=== PATIENT | female | born 1985 | race Caucasian/White ===

== ENCOUNTER 2019-04-21 17:30 | Emergency (ER) | payer OTHER, SELFPAY ==
--- NOTE | ~2019-04-21 | CT_ITS ---
EXAMINATION: CT abdomen pelvis w con INDICATION: Right lower quadrant abdominal pain TECHNIQUE: Computed tomographic images of the abdomen and pelvis were obtained after the administrati on of 100 cc of Omnipaque 350 intravenous contrast. The dose-length product (DLP) was 581.05 mGy-cm. Automated exposure control and iterative reconstruction technique were employed. COMPARISON: None available FINDINGS: Minimal dependent atelectasis is present in the lung bases. The heart size is normal. The l iver, spleen, pancreas, gallbladder, and adrenal glands are normal. There is a [address] one of the left kidney lower pole. There is no hydronephrosis or hydroureter. There is questionable m ild urothelial enhancement of the right ureter. No pathologically enlarged abdominal or pelvic lymph nodes are identified. There is no free intraperitoneal gas or evidence of bowel obstruction. The appe ndix is normal. IMPRESSION: 1. Possible mild urothelial enhancement of the right ureter which could reflect urinary tract infecti on. 2. Normal appendix. Reviewed, dictated and finalized at location A. [employer] IMPRESSION: 1. Possible mild urothelial enhancement of the right ureter which could reflect urinary tract infection. 2. Normal appendix.
[2019-04-21 18:52] VITALS: BP 135/87; PULSE 90; RESP 18; TEMP 37.1; O2SAT 100
[2019-04-21 19:04] LABS: Basophils Absolute Auto 0.1 K/mm3 (0.0-0.1); Basophils Percent Auto 0.3 % (0.2-1.2); Eosinophils Absolute Auto 0.1 K/mm3 (0-0.3); Eosinophils Percent Auto 0.9 % (0-4.4); Hematocrit 38.6 % (37.0-47.0); Hemoglobin 12.7 g/dL (12.0-15.0); Immature Granulocyte Absolute 0.06 K/mm3 (0.00-0.031); Immature Granulocyte Percent A 0.4 % (0-0.5); Lymphocytes Absolute Auto 3.03 K/mm3 (0.9-3.2); Lymphocytes Percent Auto 20.4 % (18.3-44.2); Mean Corpuscular HGB Conc 32.9 g/dl (32-36); Mean Corpuscular Hemoglobin 33.4 pg (26-34); Mean Corpuscular Volume 101.6 fl (80-100); Mean Platelet Volume 9.8 fl (7.4-10.4); Monocytes Absolute Auto 0.7 K/mm3 (0.1-0.6); Monocytes Percent Auto 4.8 % (2.6-8.5); Neutrophils Absolute Auto 10.9 K/mm3 (1.3-6.7); Neutrophils Percent Auto 73.2 % (45.5-73.1); Platelet Count Result 278 k/mm3 (150-375); Red Cell Distribution Width 13.1 % (11.5-14.5); White Blood Count 14.9 K/mm3 (4.5-10.0)
[2019-04-21 19:10] LABS: Add Urine Microscopic? YES; Appearance Urine Cloudy (Clear); Bacteria Urine 1+ /hpf; Bilirubin Urine Negative (Negative); Blood Urine 1+ (Negative); Color Urine Amber (Yellow); Glucose Urine UA Negative (Negative); Ketones Urine Trace mg/dL (Negative); Leukocyte Esterase Ur 1+ LEU/UL (Negative); Mucus Urine Heavy /lpf; Nitrate Urine Positive (Negative); Protein Urine 1+ mg/dL (Negative); Specific Grav Ur 1.026 (1.001-1.035); Squamous Epithelial Cell Urine Many /hpf (Few); Urobilinogen Urine Negative mg/dL (<2.0)
[2019-04-21 19:16] LABS: Alanine Aminotransferase 45 U/L (4-35); Albumin Level 4.3 g/dL (3.5-5.1); Alkaline Phosphatase 110 U/L (38-126); Aspartate Amino Transferase 26 U/L (14-36); Bilirubin,Total 0.8 mg/dL (0.2-1.3); Blood Urea Nitrogen 10 mg/dL (7-17); Calcium 9.5 mg/dL (8.4-10.2); Carbon Dioxide 25 mmol/L (22-30); Chloride 98 mmol/L (98-107); Estimated CRCL calculation 94 ml/min; Estimated Glomerular Filt Rate > 60; Glucose 102 mg/dL (65-105); Lipase 217 U/L (23-300); Potassium 4.2 mmol/L (3.4-5.0); Sodium 136 mmol/L (137-145)
--- NOTE | 2019-04-21 20:16 | ED.ABDPAIN ---
HPI - Abdominal Pain General Chief Complaint: Abdominal Pain Stated Complaint: abd pain Time Seen by Provider: 04/21/19 20:05 Source: patient Mode of arrival: ambulatory Limitations: no limitations History of Present Illness HPI narrative: The pt is a 34 y/o female who presents to the ED c/o diffuse stinging ABD pain onset one day ago. Pt states that the pain has worsened progressively and is worse in the RLQ. Pt denies N/V, dysuria, vaginal bleeding, and vaginal discharge. MD elicited complaint: abdominal pain Onset (ago): day(s) (1) Pain Consistency: constant (Progressively worsening) Location: diffuse (Worse in RLQ) Quality: other (Stinging) Associated symptoms: denies other symptoms Related Data Allergies Allergy/AdvReac Type Severity Reaction Status Date / Time vancomycin Allergy Unknown Itching Verified 11/10/18 03:37 Review of Systems Review of Systems: All systems reviewed & are unremarkable except as noted in HPI and below Gastrointestinal: Gastrointestinal: Reports abdominal pain (Diffuse, stinging, worse in RLQ), Denies nausea and Denies vomiting Genitourinary: Genitourinary: Denies abnormal vaginal bleeding, Denies dysuria and Denies vaginal discharge PMFSH Past Medical History Medical History (Updated 04/21/19 @ 22:04 by Daryl Carreon MD) Foot infection Gestational diabetes Inguinal hernia Surgical History Surgical History (Updated 04/21/19 @ 20:19 by Román Terrazas) H/O inguinal hernia repair H/O oral surgery Social History Social History (Updated 04/21/19 @ 20:20 by Román Terrazas) Smoking status: Smoker, status unknown Exam Narrative: Exam Narrative: GENERAL: Well-appearing, well-nourished, and in no acute distress. HEAD: Normocephalic, atraumatic. EYES: PERRLA and EOMI. ENT: Nares clear, no rhinorrhea or epistaxis. Mucous membranes moist. NECK: Supple. CHEST: Clear to auscultation. No respiratory distress. HEART: Regular rate and rhythm. No murmur heard. Normal peripheral pulses. ABDOMEN: Soft, tender in the lower abdomen more so on the right lower quadrant area., normal active bowel sounds. EXTREMITIES: Normal range of motion. No edema. SKIN: Warm, dry, no rash. NEURO: No focal deficits. Alert and oriented x3. PSYCH: Normal mood and affect. Course Course Emergency Course: Inform patient about her lab work, CT findings. Her lower abdominal pain more consistent with urinary tract infection. Advised her to drink plenty of fluids, take antibiotic as prescribed. And follow-up with the primary doctor in the next few days. Vital Signs Vital signs: Vital Signs Temperature 37.1 C 04/21/19 18:52 Pulse Rate 90 04/21/19 18:52 Respiratory Rate 18 04/21/19 18:52 Blood Pressure 135/87 04/21/19 18:52 Pulse Oximetry 100 04/21/19 18:52 Temperature 37.1 C 04/21/19 18:52 Pulse Rate 90 04/21/19 18:52 Respiratory Rate 18 04/21/19 18:52 Blood Pressure 135/87 04/21/19 18:52 Pulse Oximetry 100 04/21/19 18:52 MDM - Abdominal Pain Lab Data Result diagrams: 04/21/19 18:56 04/21/19 18:56 Labs: Lab Results 04/21/19 04/21/19 04/21/19 Range/Units 18:56 18:56 18:56 WBC 14.9 H (4.5-10.0) K/mm3 RBC 3.80 L (4.2-5.4) M/mm3 Hgb 12.7 (12.0-15.0) g/dL Hct 38.6 (37.0-47.0) % MCV 101.6 H (80-100) fl MCH 33.4 (26-34) pg MCHC 32.9 (32-36) g/dl RDW 13.1 (11.5-14.5) % Plt Count 278 (150-375) k/mm3 MPV 9.8 (7.4-10.4) fl Immature Gran % (Auto) 0.4 (0-0.5) % Neut % (Auto) 73.2 H (45.5-73.1) % Lymph % (Auto) 20.4 (18.3-44.2) % Early % (Auto) 4.8 (2.6-8.5) % Eos % (Auto) 0.9 (0-4.4) % Baso % (Auto) 0.3 (0.2-1.2) % Lymph # (Auto) 3.03 (0.9-3.2) K/mm3 Early # (Auto) 0.7 H (0.1-0.6) K/mm3 Eos # (Auto) 0.1 (0-0.3) K/mm3 Baso # (Auto) 0.1 (0.0-0.1) K/mm3 Abs Immat Gran (auto) 0.06 H (0.00-0.031) K/mm3 Absolute Neuts (auto) 10.9 H
[2019-04-21 22:06] VITALS: BP 142/78; PULSE 88; RESP 16; O2SAT 98
[2019-04-21] MEDS: KETOROLAC 30 MG/ML VIAL (*BKC) IV PUSH (22:06)
== END 2019-04-21 22:47 | disposition home or self-care (01) ==
PROVIDERS: Emergency Provider Family Medicine
DX: N39.0 Urinary tract infection, site not specified (principal)
CPT/HCPCS: 36415; 74177; 80053; 81001; 81025; 83690; 85025; 87077; 87086; 87088; 87186; 96365; 96375; 99284; J0696; J1885; Q9967

== ENCOUNTER 2021-02-16 19:07 | Emergency (ER) | payer OTHER, SELFPAY ==
[2021-02-16 19:16] VITALS: BP 147/82; PULSE 102; RESP 24; TEMP 36.9; O2SAT 100
--- NOTE | 2021-02-16 19:32 | ED.FEMALEGU ---
HPI - Female Genitourinary General Chief complaint: Urogenital-Female Stated complaint: fever Time Seen by Provider: 02/16/21 19:32 Source: patient, RN notes reviewed and old records reviewed History of Present Illness HPI Narrative: 35-year-old female presents to the [facility] with complaints of a feeling feverish, body aches, mild headache, urinary frequency, urgency and pain. Right flank pain. Denies abdominal pain or chest pain. No nausea vomiting or diarrhea. Reports that she has felt feverish and has had the chills. States the highest temperature she noted 98.7 Related Data Allergies Allergy/AdvReac Type Severity Reaction Status Date / Time vancomycin Allergy Unknown Itching Verified 02/16/21 19:25 Review of Systems Review of Systems: All systems reviewed & are unremarkable except as noted in HPI and below Constitutional: Constitutional: Reports as per HPI and Reports chills Eyes: Eyes: Reports no additional eye complaints ENT: Reports system reviewed and no additional complaints, except as documented, Denies dizziness, Denies nasal congestion and Denies sore throat Cardiovascular: Cardiovascular: Denies chest pain Respiratory: Respiratory: Denies cough, Denies dyspnea and Denies wheezing Gastrointestinal: Gastrointestinal: Reports no additional gastrointestinal complaints, Denies abdominal pain, Denies nausea and Denies vomiting Genitourinary: Genitourinary: Reports hematuria, Reports nocturia, Reports dysuria and Reports flank pain (right low flank ) Musculoskeletal: Musculoskeletal: Reports no additional musculoskeletal complaints Integumentary/Breasts: Skin/Breast: Reports system reviewed and no additional complaints, except as docu Neurologic: Reports system reviewed and no additional complaints, except as documented Psychiatric: Psychiatric: Reports no additional psychiatric complaints Allergic/Immunologic: Allergic/Immunologic: Reports no additional allergic/immunologic complaints [facility] Past Medical History Medical History Foot infection Gestational diabetes Inguinal hernia Surgical History Surgical History H/O inguinal hernia repair H/O oral surgery Social History Social History Smoking status: Smoker, status unknown Comments At the time of my signature, I reviewed and agree with the nursing past medical, surgical, social, and family history. There is no relevant family history pertinent to the patient complaint. Exam Const: General: healthy appearing, no acute distress and alert Nutritional Appearance: well nourished Orientation/consciousness: patient oriented x3 Limitations: no limitations HENMT: Head: normal to inspection Eyes: Pupils: Equal, round and reactive pupils present Neck: Neck: normal visual inspection, no lymphadenopathy and no meningeal signs Chest: Chest palpation & inspection: normal inspection of the chest Resp: Effort & Inspection: normal respiratory effort and no use of accessory muscles Auscultation: clear to auscultation bilaterally, no rales, no rhonchi and no wheezes Cardio: Rate: regular rate Rhythm: regular rhythm GI: GI Palp: Yes Soft to palpation, No Tenderness to palpation present (GI), No Guarding due to palpation present (GI) and No Rebound tenderness present : General: Yes CVA tenderness on the right (lower) Back/Spine/Pelvis: Back: CVA tenderness Skin: General skin exam: normal color Neuro: General: patient oriented x3, moves all extremities, no meningeal signs and no focal motor deficits Speech: normal speech Gait exam (Neuro): Normal gait present Extrem: General: normal to inspection and no pedal edema Psych: Mental Status: mental status grossly normal Affect: normal affect Attitude: cooperative Thought content: Yes Normal thought content present Judgement: Good judgement present (Ps
== END 2021-02-16 19:58 | disposition home or self-care (01) ==
PROVIDERS: Emergency Provider Nurse Practitioner; PCP Nurse Practitioner Family
DX: N39.0 Urinary tract infection, site not specified (principal)
CPT/HCPCS: 81003; 87077; 87086; 87088; 87186; 99213; G0463

== ENCOUNTER 2022-08-28 09:20 | Outpatient (CLI) | payer OTHER, SELFPAY ==
--- NOTE | 2022-08-28 08:30 | ECG_ITS ---
Measurements Intervals [place] Rate: 77 P: 52 W[place]: 166 QRS: 53 QRSD: 92 T: 32 QT: 385 QTc: 437 Interpretive Statements SINUS RHYTHM LOW QRS VOLTAGE IN PRECORDIAL LEADS [QRS DEFLECTION < 1.0 mV IN CHEST LEADS] INCOMPLETE RIGHT BUNDLE BRANCH BLOCK [90+ ms QRS DURATION, TERMINAL R IN V1/V2, 40+ ms S IN I/aVL/V4/V5/V6] NO PREVIOUS ECG AVAILABLE FOR COMPARISON Electronically Signed On 08-28-2022 19:52:06 CDT by Umu Lopez M.D.
[2022-08-28 09:41] LABS: Hematocrit 39.6 % (37.0-47.0); Hemoglobin 12.2 g/dL (12.0-15.0)
== END 2022-08-28 09:21 | disposition home or self-care (01) ==
PROVIDERS: PCP Nurse Practitioner Family; Visit Provider Obstetrics & Gynecology
DX: N93.9 Abnormal uterine and vaginal bleeding, unspecified (principal); R10.2 Pelvic and perineal pain; F17.210 Nicotine dependence, cigarettes, uncomplicated; I45.10 Unspecified right bundle-branch block
CPT/HCPCS: 36415; 85014; 85018; 86850; 86900; 86901; 93005

== ENCOUNTER 2022-08-30 00:04 | Day surgery (SDC) | payer OTHER, SELFPAY ==
[2022-07-17 13:57] VITALS: BMI 31.1
--- NOTE | 2022-07-17 13:58 | SUR.PREOP ---
Report to the Outpatient Waiting Room, entrance under the green pavilion located off [facility], at time _1000 on date _07/26/22 . Planned Procedure Time: _1200 . Time changes happen often and if your time is changed the preop area will call you the afternoon before. - You and your visitor will be asked to self-screen and do not enter if you have any COVID symptoms. - A mask is optional within the hospital at this time. Patients may have clear liquids (water, carbonated beverages, clear teas, apple juice) until 3 hours prior to surgery with a maximum of 20 ounces. - No food from midnight until time of surgery - Infants may have breast milk until 4 hours before surgery, infant formula 6 hours prior to surgery. - Children will be allowed to drink immediately following surgery. If applicable, please bring a bottle or sippy cup to assist with drinking. Juice, water, soda, and popsicles are readily available. For infants on formula, please bring formula the day of surgery. Pacifiers are allowed. Take the following medications with a SIP of water the morning of surgery: ___n/a DO NOT STOP ANY OF YOUR OTHER PRESCRIPTION MEDICATIONS PRIOR TO SURGERY ?EXCEPT THE FOLLOWING Medications to discontinue per physician _ VITAMINS Date to take last dose__07/23/22 Please no make-up, nail lebanese, hairspray, perfume, deodorant, or body powder the day of surgery. No jewelry (including any body piercings) or valuables the day of surgery, leave them at home. Please take a shower or bath the night before, or the morning of, surgery with an antibacterial soap. Wear comfortable, loose fitting clothing. Children are encouraged to wear pajamas. - Jewelry must be removed prior to entering the operating room. Rings and piercings that are not removed may be cut off. - The hospital will not accept responsibility for valuables. - Please leave all valuables, including medications, at home the day of surgery. If you are going home after surgery, a licensed company truck driver must drive you home. - NO public transportation without another adult if you receive anesthesia. - We recommend that an adult stay with you for 24 hours following discharge. - We also recommend that you do not drive, make important decision, drink alcoholic beverages, or take any drugs that were not prescribed by your health care provider for at least 24 hours after your discharge time. For Pediatric surgeries, we recommend two adults accompany the child home. Follow any additional instructions given to you from your surgeon. If you or anyone in your household have experienced Covid symptoms in the past week, please notify your surgeon or the nurse liaison at the phone number below for possible testing. Telephone instructions given to _LESLIE HALDEY and asked if any additional questions and then verbalized understanding. Patient advised to call surgeon office or pre surgery nurse liaison [phone] if any additional questions.
--- NOTE | 2022-08-27 07:39 | PM.IMHP ---
H&P: HPI History of Present Illness Date/Time: 08/27/22 07:39 Chief Complaint: Pelvic plain bleeding Narrative: This is a 37-year-old 4 para 4 admitted for laparoscopy hysteroscopy dilatation curettage. She has had pain bleeding and discomfort. Ultrasound shows a 200+ cm uterus. In light of these findings she will undergo laparoscopy hysteroscopy dilatation curettage. Risks and benefits reviewed including but not exclusive of , aspiration pneumonia bleeding, transfusion, perforation injury to bowel, bladder, ureters, or other internal organs with need for open laparotomy. She received the [employer] handouts entitled hysteroscopy/dilatation curettage/laparoscopy. She had all questions answered and asked to proceed PMFSH Past Medical History Medical History Foot infection Gestational diabetes Inguinal hernia Surgical History Surgical History H/O inguinal hernia repair H/O oral surgery Social History Social History Smoking status: Current every day smoker Tobacco type: cigarettes Additional smoking assessment comments: 1 ppd x 20 years cigarettes Alcohol intake: current Drinks per week: 6 Living arrangements: with family Spiritual care concerns: No Meds Home Medications and Allergies Home Medications Medication Instructions Recorded Confirmed Type medroxyprogesterone 10 mg tablet 10 mg PO DAILY 07/17/22 07/17/22 History vitamin E 1,000 unit tablet 1 tablet PO DAILY 07/17/22 07/17/22 History Allergies Allergy/AdvReac Type Severity Reaction Status Date / Time vancomycin Allergy Intermediate Itching Verified 07/17/22 13:29 Exam Const: General: cooperative, healthy appearing, comfortable and average body habitus Orientation/consciousness: oriented to person, oriented to place and oriented to time HENMT: Head: normal to inspection Chest: Chest palpation & inspection: normal inspection of the chest Resp: Effort & Inspection: normal respiratory effort Cardio: Rate: regular rate Rhythm: regular rhythm Heart sounds: S1 normal heart sound present and S2 normal heart sound present GI: Inspection: normal to inspection Percussion: Yes normal to percussion Auscultation: normal bowel sounds : External Female Exam: normal external appearance Speculum Exam - Vagina: normal appearance of the vagina Speculum Exam - Cervix: normal appearance of the cervix Bimanual exam- vagina & uterus: enlarged Bimanual Exam- Adnexa, other: tender bilaterally Assessment and Plan Assessment and plan (1) Enlarged uterus: Code(s): N85.2 - Hypertrophy of uterus Status: Acute (2) Vaginal bleeding: Code(s): N93.9 - Abnormal uterine and vaginal bleeding, unspecified Status: Acute (3) Pelvic pain: Code(s): R10.2 - Pelvic and perineal pain Status: Acute Plan Laparoscopy/hysteroscopy/dilatation and curettage
[2022-08-27 09:31] VITALS: BMI 31.1
--- NOTE | 2022-08-27 09:33 | PC.NURSE ---
Report to the Outpatient Waiting Room, entrance under the green pavilion located off [facility], at time 11:30 on date 08/30/22. Planned Procedure Time: 1:30. Time changes happen often and if your time is changed the preop area will call you the afternoon before. - You and your visitor will be asked to self-screen and do not enter if you have any COVID symptoms. - A mask is optional within the hospital at this time. Patients may have clear liquids (water, carbonated beverages, clear teas, apple juice) until 3 hours prior to surgery (10:30) with a maximum of 20 ounces. - No food from midnight until time of surgery Take the following medications with a SIP of water the morning of surgery: NONE DO NOT STOP ANY OF YOUR OTHER PRESCRIPTION MEDICATIONS PRIOR TO SURGERY ?EXCEPT THE FOLLOWING Medications to discontinue per physician: VITAMINS/SUPPLEMENTS Date to take last dose: 08/26/22 Please no make-up, nail wolof, hairspray, perfume, deodorant, or body powder the day of surgery. No jewelry (including any body piercings) or valuables the day of surgery, leave them at home. Please take a shower or bath the night before, or the morning of, surgery with an antibacterial soap. Wear comfortable, loose fitting clothing. - Jewelry must be removed prior to entering the operating room. Rings and piercings that are not removed may be cut off. - The hospital will not accept responsibility for valuables. - Please leave all valuables, including medications, at home the day of surgery. If you are going home after surgery, a licensed cdl truck driver must drive you home. - NO public transportation without another adult if you receive anesthesia. - We recommend that an adult stay with you for 24 hours following discharge. - We also recommend that you do not drive, make important decision, drink alcoholic beverages, or take any drugs that were not prescribed by your health care provider for at least 24 hours after your discharge time. Follow any additional instructions given to you from your surgeon. If you or anyone in your household have experienced Covid symptoms in the past week, please notify your surgeon or the nurse liaison at the phone number below for possible testing. Telephone instructions given to PT - AB HADLEY and asked if any additional questions and then verbalized understanding. Patient advised to call surgeon office or pre surgery nurse liaison [phone] if any additional questions.
[2022-08-30] VITALS (8 sets, daily range): BP systolic 113–131; BP diastolic 62–90; PULSE 69–100; RESP 15–20; TEMP 36.3–36.6; O2SAT 97–100
--- NOTE | 2022-08-30 06:24 | WPDHPUPDATE1 ---
History and Physical Update Update Date/Time: 08/30/22 06:24 History and Physical has been reviewed, including an updated exam of the patient. There are NO changes in the patient's condition. Risks, benefits, and alternatives have been discussed and questions answered. Patient agrees to proceed with procedure.
[2022-08-30] MEDS: ACETAMINOPHEN 500 MG TABLET 1000 MG PO (11:40)
[2022-08-30] MEDS: LACTATED RINGERS 1,000 ML 30 ML IV CONT ×2 (12:16→13:55)
[2022-08-30] MEDS: KETOROLAC 15 MG/ML VIAL (*BKC) IV PUSH (12:16)
--- NOTE | 2022-08-30 13:05 | WPDANESEPPF ---
Anes - Initial Pre Proc Eval Procedure: Operation Date: 08/30/22 13:30 Proposed Procedures p Diagnostic Laparoscopy, Hysteroscopy, Dilation and Curettage - Esteban Charles MD Date/Time: 08/30/22 13:05 Surgeon: Esteban Charles MD Pre Op Diagnosis: pelvic pain, heavy excessive bleeding, dismennorhe Patient Data Age: 37 Gender: F Height: 1.57 m Weight: 78.6 kg Last Vital Signs Temp 36.6 C 08/30/22 11:51 Pulse 88 08/30/22 11:51 Resp 16 08/30/22 11:51 BP 130/75 08/30/22 11:51 Pulse Ox 100 08/30/22 11:51 O2 Del Method Room Air 08/30/22 11:51 Allergies Allergy/AdvReac Type Severity Reaction Status Date / Time vancomycin Allergy Intermediate Itching Verified 08/30/22 11:35 Home Medications Medication Instructions Recorded Confirmed Type vitamin E 1,000 unit tablet 1 tablet PO DAILY 07/17/22 08/27/22 History Lactobacillus 1 cap PO DAILY 08/27/22 08/27/22 History acidophilus-Bifidobac.animalis 2.5 billion cell capsule (Daily Probiotic) hydrocodone 5 mg-acetaminophen 325 1 tablet PO Q4H PRN pain #20 tabs 08/30/22 Rx mg tablet Patient hx anesthesia problems: none Family hx anesthesia problems: none Results Review: All pre-operative results and documents have been reviewed as part of the pre-operative evaluation. [facility] Past Medical History Medical History (Updated 08/30/22 @ 13:05 by Mamadou Sanchez DO) Anxiety Foot infection Gestational diabetes Inguinal hernia PTSD (post-traumatic stress disorder) Surgical History Surgical History H/O inguinal hernia repair H/O oral surgery Social History Social History (Updated 08/30/22 @ 13:09 by Mamadou Sanchez DO) Smoking packs per day: 1 Smoking cigarettes per day: 20.0 Years smoked: 20 Smoking pack-years: 20.00 Smoking status: Current every day smoker Tobacco type: cigarettes Alcohol intake: current Drinks per week: 6 Alcohol use details: 4 drinks/day Substance use: never Substance use type: does not use Living arrangements: with family Spiritual care concerns: No Anes - Eval Final PreProcedure Day of Procedure 08/30/22 13:05 Patient weight: obese Heart: regular rate and rhythm Lungs: clear to auscultation Airway: Mallampati scale class II Neurological: alert and oriented Last oral intake: >/= 8 hours ASA classification: III Emergent: no Anesthetic plan: proceed Anesthesia type and monitoring: general ETT and standard monitoring Results Review: All pre-operative results and documents have been reviewed as part of the pre-operative evaluation. Informed Consent: The patient's anesthetic plan and its attendant risks and benefits were discussed with the patient/family/POA. Questions were solicited and answers provided to the satisfaction of the patient/family/POA.
[2022-08-30] MEDS: SCOPOLAMINE 1.5 MG PATCH TRANSDERM (13:41)
--- NOTE | 2022-08-30 13:48 | W.PM.PROC2 ---
Procedure Note - Detailed Date of Procedure 08/30/22 Pre-op Diagnosis pelvic pain, heavy excessive bleeding, dismennorhe Post-op Diagnosis Other (Pelvic pain excessive bleeding dysmenorrhea endometriosis) Procedure Performed laparoscopy/destruction of endometriosis/hysteroscopy/ dilatation curettage Surgeon Esteban Charles MD Anesthesia General Indications since 37-year-old female with heavy bleeding pain and discomfort Findings markedly enlarged uterus. Areas of endometriosis and blister formed along the right and left uterosacral ligaments. On hysteroscopy the uterus sounded to 10cm. Thick irregular endometrial tissue was present that appeared benign in nature Description of Procedure patient was prepped draped in the normal sterile fashion placed in dorsal lithotomy position. Under excellent general trach anesthesia weighted speculum placed in posterior fornix vagina. Anterior lip of the cervix grasped with single-tooth tenaculum. The uterine cannula inserted the cervix attached to the single-tooth to be used later for uterine manipulation. After emptying the bladder clear urine the weighted speculum was removed. The gloves were changed after emptying the bladder of clear urine. Supraumbilical incision made. The Veress needle passed in the abdomen. The abdomen filled with CO2 gas [id number]. The 5mm trocar advanced under direct visualization assuring no injury. Patient placed in 20? and tender Trendelenburg and a suprapubic incision made. The 5mm trocar advanced under direct visualization assuring no injury. The above findings were seen in photo documentation undertaken. [id number] of serosanguineous fluid removed from the cul-de-sac. These areas of endometriosis were cauterized at 30 w per 2nd with monopolar cautery. No other abnormalities were seen. The lower site removed. The gas removed from the abdomen. The upper site removed the incisions closed with 4 Monocryl and glue. Attention was turned to the hysteroscopic portion of the procedure. The uterus sounded to 10cm. Serial dilatation with fragmented dilators performed followed passes the 5mm visualizing hysteroscope using normal saline as visualizing medium. Thick irregular endometrial tissue was seen but nothing that appeared cancers or precancers. The uterus was then scraped over the entire 360? until good grating sound was heard. The instruments withdrawn. The patient was awakened went to recovery in satisfactory condition. All sponge, needle, instrument counts were correct. There were no immediate complications Estimated Blood Loss 5 Drains No Packing No Pathology Yes Complications No immediate complications Condition Stable Disposition PACU
[2022-08-30] MEDS: fentaNYL CITRATE INJ (*CRX) 100 MCG/2 ML VIAL 25 MCG IV PUSH ×2 (14:26→14:28)
[2022-08-30] MEDS: oxyCODONE HCL (*CRX) 5 MG TAB IR PO (15:15)
== END 2022-08-30 15:47 | disposition home or self-care (01) ==
PROVIDERS: PCP Nurse Practitioner Family; Visit Provider Obstetrics & Gynecology
PROC: 0UDB8ZZ Extraction of Endometrium, Via Natural or Artificial Opening Endoscopic (ICD-10-PCS; CPT 58558; principal; 2022-08-30 13:30)
DX: N80.3C3 Endometriosis of bilateral uterosacral ligament(s), unspecified depth (principal); N93.9 Abnormal uterine and vaginal bleeding, unspecified; R10.2 Pelvic and perineal pain; N94.6 Dysmenorrhea, unspecified; F17.210 Nicotine dependence, cigarettes, uncomplicated; E66.9 Obesity, unspecified; Z68.31 Body mass index [BMI] 31.0-31.9, adult
CPT/HCPCS: 58558; 58662; 88305; A9270; J0330; J1100; J1885; J2250; J2405; J2704; J3010; J7120

== ENCOUNTER 2023-05-15 18:06 | Emergency (ER) | payer OTHER, SELFPAY ==
--- NOTE | ~2023-05-15 | XR_ITS ---
EXAMINATION: XR cervical spine 4-5V DATE: 05/15/2023 19:24 INDICATION: Neck and upper arm pain. TECHNIQUE: 5 views of cervical spine including standing views were obtained. COMPARISON: None. FINDINGS: There is 3 degrees levocurvature of cervical spine. Vertebral body heights and intervertebr al disc heights are normal. The facet joints are normal. No neural foraminal stenosis or central ramesh l stenosis. No prevertebral soft tissue swelling. IMPRESSION: 1. No etiology for the patient's symptoms. Reviewed, dictated and finalized at location [facility]. [employer]
[2023-05-15 18:24] VITALS: BP 142/95; PULSE 95; RESP 18; TEMP 36.3; O2SAT 100
--- NOTE | 2023-05-15 19:31 | ED.GENADULT ---
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 Patient denies any known injury up precipitated symptoms. 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 Pt reports difficulty sleeping for the past 4 nights. Patient endorses shooting pains in bilateral hands that wake her from her sleep. Denies any pertinent medical history or prescription medications. Patient endorses allergy to vancomycin. Patient has attempted to treat with ibuprofen without relief. Related Data Allergies Allergy/AdvReac Type Severity Reaction Status Date / Time vancomycin Allergy Intermediate Itching Verified 05/15/23 18:55 Review of Systems Review of Systems: All systems reviewed & are unremarkable except as noted in HPI and below Constitutional: Constitutional: Reports as per HPI, Reports difficulty sleeping and Reports weakness ( bilateral hands) Eyes: Eyes: Reports no additional eye complaints ENT: Reports system reviewed and no additional complaints, except as documented Cardiovascular: Cardiovascular: Reports no additional cardiovascular complaints, Denies chest pain and Denies dyspnea Respiratory: Respiratory: Reports no additional respiratory complaints, Denies cough and Denies dyspnea Musculoskeletal: Musculoskeletal: Reports as per HPI, Reports back pain ( cervical), Denies deformity, Reports muscle weakness ( bilateral hands) and Reports tingling Neurologic: Reports system reviewed and no additional complaints, except as documented Psychiatric: Psychiatric: Reports no additional psychiatric complaints [facility] Past Medical History Medical History (Updated 05/15/23 @ 19:39 by Sanjuana Ridley APRN) Anxiety Foot infection Gestational diabetes Inguinal hernia PTSD (post-traumatic stress disorder) Surgical History Surgical History (System 02/11/23 @ 08:59 by Kathe Wells) H/O inguinal hernia repair H/O oral surgery Social History Social History (System 02/11/23 @ 08:59 by Kathe Wells) Smoking packs per day: 1 Smoking cigarettes per day: 20.0 Years smoked: 20 Smoking pack-years: 20.00 Smoking status: Current every day smoker Tobacco type: cigarettes Alcohol intake: current Drinks per week: 6 Alcohol use details: 4 drinks/day Substance use: never Substance use type: does not use Living arrangements: with family Spiritual care concerns: No Comments At the time of my signature, I reviewed and agree with the nursing past medical, surgical, social, and family history. There is no relevant family history pertinent to the patient complaint. Exam Const: General: cooperative, healthy appearing, comfortable, no acute distress, alert and well nourished Nutritional Appearance: well nourished Orientation/consciousness: patient oriented x3 Limitations: no limitations HENMT: Head: normal to inspection Ears: external ears normal Face/Nose/Sinus: Normal external nose present, Normal nares present, normal facial exam, No erythema and No edema Face and sinus: normal facial exam, no erythema and no edema Mouth: Yes Normal oral and palatal mucosa present Eyes: General: appearance normal, both eyes and all related structures Neck: Neck: normal visual inspection, full ROM and no meningeal signs Lymphatic: no lymphadenopathy noted and no lymphedema noted Chest: Chest palpation & inspection: normal inspection of the chest Resp: Effort & Inspection: normal respiratory effort and able to speak in co
== END 2023-05-15 19:42 | disposition home or self-care (01) ==
PROVIDERS: Emergency Provider Nurse Practitioner Family; PCP Nurse Practitioner Family
DX: M54.12 Radiculopathy, cervical region (principal); S16.1XXA Strain of muscle, fascia and tendon at neck level, initial encounter; X58.XXXA Exposure to other specified factors, initial encounter; F17.210 Nicotine dependence, cigarettes, uncomplicated
CPT/HCPCS: 72050; 99213; G0463

== ENCOUNTER 2023-11-01 15:07 | Emergency (ER) | payer OTHER, SELFPAY ==
--- NOTE | 2023-11-01 15:18 | ED.EXTPRO ---
HPI - Extremity Problem General Chief complaint: Extremity Problem,Nontraumatic Stated complaint: Arm Pain Source: patient Mode of arrival: ambulatory Limitations: no limitations History of Present Illness HPI Narrative: 38-year-old female with a pre-existing right shoulder injury presented for complaint of increased right shoulder pain after attempting to catch a box while at work today. She states the original injury is a rotator cuff tear, which also occurred at work 05/2023. She endorses she has had limited range of motion. She also states she was referred to an ortho in [place] and planned for injections, however 'everything was stopped' due to workman's comp and she was unable to provide her employer with restrictions, therefore she has continued to lift heavier than she was instructed. Today she says a 40-50lb box fell and she attempted to catch it, which resulted in increased pain to the right shoulder. Pt states the limited ROM is unchanged, but pain is worse than normal. Rates pain 8/10. Has not taken anything for pain. Was sent by employer. Related Data Allergies Allergy/AdvReac Type Severity Reaction Status Date / Time vancomycin AdvReac Mild Itching Verified 11/01/23 15:10 Review of Systems Review of Systems: CONSTITUTIONAL: Denies body aches, fever, chills CARDIOVASCULAR: Denies chest pain, palpitations, or edema. RESPIRATORY: Denies cough or dyspnea. SKIN: Denies rash, itching, or wounds. MUSCULOSKELETAL: Reports right shoulder pain NEUROLOGIC: Denies headache, reports occasional numbness, tingling to right arm All systems reviewed & are unremarkable except as noted in HPI and below PMFSH Past Medical History Medical History Anxiety Foot infection Gestational diabetes Inguinal hernia PTSD (post-traumatic stress disorder) Surgical History Surgical History H/O inguinal hernia repair H/O oral surgery Social History Social History Smoking packs per day: 1 Smoking cigarettes per day: 20.0 Years smoked: 20 Smoking pack-years: 20.00 Smoking status: Current every day smoker Tobacco type: cigarettes Alcohol intake: current Drinks per week: 6 Alcohol use details: 4 drinks/day Substance use: never Substance use type: does not use Living arrangements: with family Spiritual care concerns: No Comments At time of signature, I have reviewed and agree with nursing past medical, surgical, social and family history unless otherwise noted. Please see nursing chart for further information. There is no relevant family history pertinent to the presenting complaint Exam Narrative: GENERAL: Well-appearing CHEST: Speaks in full sentences. No respiratory distress. HEART: Regular rate and rhythm. Normal and equal peripheral pulses. EXTREMITIES: RUE limited range of motion at shoulder due to pain with movement; pain with extension beyond 90 degrees, and overhead, unable to tolerate posterior movement. Nontender shoulder with palpation. No edema or ecchymosis. Right hand has normal strength and sensation, No open wounds or obvious deformity; alignment normal, pulse palpable and equal bilaterally, skin warm, dry, pink. Capillary refill less than 3 seconds. SKIN: Warm, dry, no rash. NEURO: Alert and oriented x3. PSYCH: Normal mood and affect Course Course Emergency Course: Patient is aware of diagnosis, understands and agrees to treatment plan. Anticipatory guidance given. Patient agrees to follow-up as directed and is aware of reasons to seek care at the emergency department. Portions of this record may have been created with voice recognition software Level of Care: Express Care Visit Vital Signs Vital signs: Vital Signs Temperature 97.5 F L 11/01/23 15:19 Pulse Rate 86 11/01/23 15:19 Respirato
[2023-11-01 15:19] VITALS: BP 150/92; PULSE 86; RESP 18; TEMP 36.4; O2SAT 100
== END 2023-11-01 15:44 | disposition home or self-care (01) ==
PROVIDERS: Emergency Provider Nurse Practitioner Family
DX: M25.511 Pain in right shoulder (principal); F17.210 Nicotine dependence, cigarettes, uncomplicated
CPT/HCPCS: 99213; G0463

== ENCOUNTER 2023-12-03 13:28 | Emergency (ER) | payer OTHER, SELFPAY ==
[2023-12-03 13:37] VITALS: BP 142/85; PULSE 95; RESP 16; TEMP 36.2; O2SAT 100
--- NOTE | 2023-12-03 13:46 | ED.FEMALEGU ---
HPI - Female Genitourinary General Chief complaint: Urogenital-Female Stated complaint: uti symptoms Time Seen by Provider: 12/03/23 13:46 Source: patient Mode of arrival: ambulatory Limitations: no limitations History of Present Illness HPI Narrative: 38-year-old female presents with complaint of bladder pressure, cramping, urinary frequency, urgency for 1 week. Reports back pain started yesterday. No dysuria. Last menstrual period November 09. No concern for . Denies nausea vomiting, fever. All systems reviewed and negative except as noted above. Related Data Allergies Allergy/AdvReac Type Severity Reaction Status Date / Time vancomycin AdvReac Mild Itching Verified 12/03/23 13:45 Review of Systems Review of Systems: CONSTITUTIONAL: Denies fever, chills, or sweats. EYES: Denies visual changes, redness, or discharge. ENT: Denies rhinorrhea, congestion, sore throat, or otalgia. CARDIOVASCULAR: Denies chest pain, palpitations, or edema. RESPIRATORY: Denies cough or dyspnea. GASTROINTESTINAL: Denies abdominal pain, nausea, vomiting, or diarrhea. GENITOURINARY: Denies dysuria or hematuria. reports bladder cramping, urinary frequency or urgency. SKIN: Denies rash or itching. MUSCULOSKELETAL: Denies back pain, joint pain, or myalgia. NEUROLOGIC: Denies headache, numbness, or weakness. PSYCHIATRIC: Denies anxiety or depression. All other systems reviewed are negative, except as documented in HPI. [facility] Past Medical History Medical History Anxiety Foot infection Gestational diabetes Inguinal hernia PTSD (post-traumatic stress disorder) Surgical History Surgical History H/O inguinal hernia repair H/O oral surgery Social History Social History Smoking packs per day: 1 Smoking cigarettes per day: 20.0 Years smoked: 20 Smoking pack-years: 20.00 Smoking status: Current every day smoker Tobacco type: cigarettes Alcohol intake: current Drinks per week: 6 Alcohol use details: 4 drinks/day Substance use: never Substance use type: does not use Living arrangements: with family Spiritual care concerns: No Comments At time of signature, agree with nursing past medical, surgical, social and family history. There is no relevant family history pertinent to the presenting complaint. Exam Narrative: GENERAL: This is a well-nourished, well-developed patient, in no apparent distress. HEAD: normocephalic, atraumatic. EYES: PERRL. Sclera clear/white. Vision is grossly intact. EARS: External ears normal NOSE: External nose normal NECK: Neck supple, non-tender without lymphadenopathy, masses or thyromegaly. CARDIOVASCULAR: Regular rate and rhythm without murmurs, gallops, or rubs. RESPIRATORY: Clear to auscultation. Breath sounds equal bilaterally. No wheezes, rales, or rhonchi. SKIN: warm, Dry, intact with no suspicious lesions or rash, good texture and turgor. NEURO: awake, alert, and oriented to person, place and time. There were no obvious focal neurologic abnormalities. EXTREMITIES: No joint tenderness, effusion, or edema noted. Course Course Level of Care: Express Care Visit Vital Signs Vital signs: Vital Signs Temperature 36.2 C L 12/03/23 13:37 Pulse Rate 95 12/03/23 13:37 Respiratory Rate 16 12/03/23 13:37 Blood Pressure 142/85 H 12/03/23 13:37 Pulse Oximetry 100 12/03/23 13:37 Oxygen Delivery Room Air 12/03/23 13:37 Temperature 36.2 C L 12/03/23 13:37 Pulse Rate 95 12/03/23 13:37 Respiratory Rate 16 12/03/23 13:37 Blood Pressure 142/85 H 12/03/23 13:37 Pulse Oximetry 100 12/03/23 13:37 Oxygen Delivery Room Air 12/03/23 13:37 Reviewed MDM - Female Genitourinary MDM Narrative Medical decision making narrative: Patient is aware of diagnosis, und
[2023-12-03 13:48] LABS: EDUAAPPEAR Cloudy; EDUABILI Negative (Negative); EDUABLOOD 2+ (Negative); EDUACOLOR1 Yellow; EDUAGLUCOSE 2+ (Negative); EDUAKETONE Negative (Negative); EDUALEUKO 3+ (Negative); EDUANITRATE Positive (Negative); EDUAPROTEIN 2+ (Negative); EDUASPGRAVITY 1.025; EDUAUROBILI 0.2
== END 2023-12-03 13:55 | disposition home or self-care (01) ==
PROVIDERS: Emergency Provider Nurse Practitioner Family; PCP Family Medicine
DX: N39.0 Urinary tract infection, site not specified (principal); B96.20 Unspecified Escherichia coli [E. coli] as the cause of diseases classified elsewhere; F17.210 Nicotine dependence, cigarettes, uncomplicated
CPT/HCPCS: 81003; 87077; 87086; 87088; 87186; 99213; G0463

== ENCOUNTER 2024-05-01 09:32 | Outpatient (CLI) | payer OTHER, SELFPAY ==
--- NOTE | ~2024-05-01 | XR_ITS ---
EXAMINATION: XR chest 2V DATE: 05/01/2024 10:01 INDICATION: Cough TECHNIQUE: PA and lateral views of the chest were obtained. COMPARISON: Chest radiograph dated 02/09/2017 FINDINGS: The lungs are clear with no focal airspace opacities, pulmonary edema, pleural effusion or pneumothor ax. The cardiomediastinal silhouette is normal. Visualized bones and soft tissues are unremarkable. IMPRESSION: 1. No acute cardiopulmonary disease. Reviewed, dictated and finalized at location [facility]. [facility]
--- OUTSIDE RECORDS SUMMARY | 2024-05-01 09:36 | XMS_ITS | Clinical Summary ---
Author Organization [facility] Address [address] [place] [address] Care Team Providers Care Comber Operator Name Role Phone Basim Davenport MD Primary Care Provider [phone] Allergies Active Allergy Reactions Criticality Noted Date Comments Vancomycin Itching Low 07/01/2021 Medications No known medications Active Problems Problem Noted Date Diagnosed Date Injury of foot 07/03/2011 Non-healing surgical wound 06/24/2011 Surgical History Surgery Date Site/Laterality Comments WISDOM TOOTH EXTRACTION 03/10/2008 - 03/09/2009 Bilatera l HERNIA REPAIR 03/10/2012 - 03/09/2013 N/A umbilical NOSE SURGERY 03/10/2022 - 03/09/2023 N/A Medical History Medical History Date Comments Urinary tract infection Family History Medical History Relation Name Comments No Known Problems Father Alcohol abuse Mother Arthritis Mother Cancer Mother Kidney disease Mother Relation Name Status Comments Father Mother Social History Tobacco Use Types Packs/Day Years Used Date Smoking Tobacco: Every Day Cigarettes Tobacco Cessation:Ready to Q uit: Not Asked; Counseling Given: Not Answered Comments No Sex and Gender Information Value Date Recorded Sex Assigned at Not on file Legal Sex Female 1:09 PM LUGGER Gender Identity Not on file Sexual Orientation Not on file Occupation Industry Job Start Date Job End Date EMPLOYED - [employer] Not on file Not on file Not on file Obstetrics History Last Filed Vital Signs Vital Sign Reading Time Taken Comments Blood Pressure 138/88 03/03/2022 11:47 AM LUGGER Pulse 91 03/03/2022 11:47 AM LUGGER Temperature 36.4 C (97.6 F) 03/03/2022 11:47 AM LUGGER Respiratory Rate 20 03/03/2022 11:47 AM LUGGER Oxygen Saturation 100% 03/03/2022 11:47 AM LUGGER Inhaled Oxygen Concentration - - Weight 81.6 kg (180 lb) 08/08/2023 7:03 AM CDT Height 157.5 cm (5' 2 ) 08/08/2023 7:03 AM CDT Body Mass Index 32.92 08/08/2023 7:03 AM CDT Plan of Treatment Health Maintenance Due Date Last Done Comments Cervical Cancer Screening 1985 Depression Screening 1985 Hepatitis C Screening 1985 Varicella Vaccines (1 of 2 - 13+ 2-dose series) 1998 Hepatitis B Screening 2003 Regular Well Visit/Exam 18-64 2003 Pneumococcal vaccine <65 (1 of 2 - PCV) 2004 Influenza Vaccine (#1) 2023 DTaP/Tdap/Td Vaccine (2 - Td or Tdap) 07/03/2028 07/03/2018 HPV Vaccines Aged Out No longer eligi ble based on patient's age to complete this topic Insurance [facility] [employer] GENERIC Care Teams Comber Operator Relationship Specialty Start Date End Date Basim Davenport MD [address] [facility] [place], [place] [id number] PCP - General Family Medicine 05/20/23
--- OUTSIDE RECORDS SUMMARY | 2024-05-01 09:36 | XMS_ITS | Referral Summary ---
Author Organization [facility] Address [address] [place] [address] Care Team Providers Care Sole Buffer Name Role Phone Basim Davenport MD Primary Care Provider [phone] Allergies Active Allergy Reactions Criticality Noted Date Comments Vancomycin Itching Low 07/01/2021 Medications No known medications Active Problems Problem Noted Date Diagnosed Date Injury of foot 07/03/2011 Non-healing surgical wound 06/24/2011 Social History Tobacco Use Types Packs/Day Years Used Date Smoking Tobacco: Every Day Cigarettes Tobacco Cessation:Ready to Q uit: Not Asked; Counseling Given: Not Answered Comments No Sex and Gender Information Value Date Recorded Sex Assigned at Not on file Legal Sex Female 1:09 PM RECONCILIATION ACCOUNTANT Gender Identity Not on file Sexual Orientation Not on file 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 Not on file Not on file Last Filed Vital Signs Vital Sign Reading Time Taken Comments Blood Pressure 138/88 03/03/2022 11:47 AM RECONCILIATION ACCOUNTANT Pulse 91 03/03/2022 11:47 AM RECONCILIATION ACCOUNTANT Temperature 36.4 C (97.6 F) 03/03/2022 11:47 AM RECONCILIATION ACCOUNTANT Respiratory Rate 20 03/03/2022 11:47 AM RECONCILIATION ACCOUNTANT Oxygen Saturation 100% 03/03/2022 11:47 AM RECONCILIATION ACCOUNTANT Inhaled Oxygen Concentration - - Weight 81.6 kg (180 lb) 08/08/2023 7:03 AM CDT Height 157.5 cm (5' 2 ) 08/08/2023 7:03 AM CDT Body Mass Index 32.92 08/08/2023 7:03 AM CDT Plan of Treatment Not on file Insurance [facility] [employer] GENERIC Care Teams Sole Buffer Relationship Specialty Start Date End Date Basim Davenport MD [address] [place] [address] PCP - General Family Medicine 05/20/23
--- OUTSIDE RECORDS SUMMARY | 2024-05-01 09:36 | XMS_ITS | Data Portability ---
Author Organization [employer], Main Office Address [address] [place] [address] Care Team Providers Care Jailor Name Role Phone BASIM DAVENPORT Primary Care Provider [phone] [employer] [phone] PRABHA MIDDLETON Referring Provider Assessment Encounter Date Assessment Date Assessment LastModified by Organization Details LastModified Time 11/11/2023 11/11/2023 D/w pt about her findings and further plan of care. Answered all questions for pt. 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 Pt will call Ortho and Hand surgeon at [facility] with the updated info. Will try to find another Ortho if needed. No work until pt can be seen by Ortho/Hand specialist and further recommendations as per them. Meds as directed. RICE explained in detail. Diet and exercise explained. F/u in few weeks for Annual exam. X-ray wrists before next visit. Pt to get us a copy of her US Rt shoulder report. [email or web address] Not available 11/11/2023 12:17:49 04/20/2024 04/20/2024 Educated pt abou t alarming symptoms to monitor at home and get checked in ED if any concern. [email or web address] Not available 04/20/2024 16:13:31 04/29/2024 04/29/2024 Educated pt abou t alarming symptoms to monitor at home and get checked in ED if any concern. [email or web address] Not available 04/29/2024 17:42:41 Plan of Treatment Reminders Order Date Submit Date Provider Last Modified By Organization Details Last Modified Time Details Appointments Physical/ Annual Wellness 30 2024 02:45P M Basim Davenport MD Not available Not available Not available Lab None recorded. Referral orthopedi c surgeon referral 2023 024 [email or web address] [facility], [address], [place], [address], 01/07/2024 09:20:45 hand surgeon referral - Please call patient to schedule an appointme nt. 2023 024 [email or web address] Jose Roberto Swanson, [address] [place], [address], 06/17/2023 09:10:40 Procedures None recorded. Surgeries None recorded. Imaging US, neck, soft tissue - Please call patient to schedule. 2024 025 [facility] ([facility]), [address], [place], [address], 04/21/2024 09:10:38 XR, chest, 2 view [email or web address] [place] [address] [facility], [address], [place], [address], 04/20/2024 16:25:14 XR, wrist, 3 or more view 2023 024 [email or web address] Not available 06/02/2023 08:57:09 Medication Orders fluticaso ne propionat e 50 mcg/actua tion nasal spray,pato pension 2024 025 [facility]303, [address], [place], [id number], 04/29/2024 17:44:16 cetirizin e 10 mg tablet 2024 025 [facility] #85358, [address], [place], [id number], 04/29/2024 17:44:14 amoxicill in 875 mg-potass ium clavulana te 125 mg tablet [address] [facility] #75959, [address], [place], [id number], 04/20/2024 16:02:25 fluticaso ne propionat e 50 mcg/actua tion nasal spray,pato pension [address] [facility] #54347, [address], [place], [id number], 04/20/2024 16:02:23 cetirizin e 10 mg tablet [address] [facility] #40510, [address], [place], [id number], 04/20/2024 16:02:25 diclofena c sodium 75 mg tablet,de layed release 2023 024 [email or web address] [facility] #05087, [address] [place] [address], [id number], 04/20/2024 15:53:29 azithromy tito 250 mg tablet 2023 024 [email or web address] [facility] #36687, [address] [place] [address], [id number], 11/11/2023 11:41:02 Medrol (Karan) 4 mg tablets in a dose pack 2023 024 [email or web address] [facility] #45546, [address] [place] [address], [id number], 11/11/2023 11:41:06 cefdinir 300 mg capsule 2023 024 [email or web address] [facility] #21846, [address] [place] [address], [id number], 05/19/2023 10:49:46 mupirocin 2 % topical ointment 2023 024 [email or web address] [facility], [address], [place], [id number], 11/11/2023 11:41:08 Patient TargetsNo targets recorded. Patient Instructions Encounter Date Encounter Id Patient Instructions Last Modified By Organization Details Last Modified Time 11/11/2023 [id number] starting a weigh t loss plan: care instructions [email or web address] Not available 11/11/2023 12:18:50 Reason for Referral Hand Surgeon Referral for Ca rpal tunnel syndrome of right wrist B/l CTS, R>L Please call patient to schedule an appointment. Referring Physician: Basim Davenport [facility], Encounter Date: 05/19/2023 Orthopedic Surgeon Referral for Pain of right shoulder joint Rt shoulder pain since 05/31. Referring Physician: Basim Davenport [facility], Encounter Date: 11/11/2023 Results Created Date Observation Date Name Description Value Unit Range Abnormal Flag Note LastModifiedBy Organization Detail LastModifiedTime Result Notes None recorded. Problems Name Problem SNOMED Code Status Onset Date Resolution Date Notes Provider Name and Address Organization Details Recorded Time Diabetes mellitus screening Active 2021 Not Available [facility] 3 00:43:04 Numbness of hand 419044214 Active 2021 Not Available [facility] 3 00:43:05 Migraine 84875571 Active 2021 Not Available [facility] 3 00:43:05 Menorrhagi a 677276205 Active 2020 Not Available [facility] 3 00:43:05 Mass of nose 006339237 Active 2022 Ana Melgar NP [address] [facility] [address], [place], [address] , [facility] 3 09:35:13 Papilloma of nasal vestibule 512104960 Active 2022 Kelby Burnette MD [address], [place], [address] , [place] [facility] 3 11:54:37 Furuncle 735807796 Active 2020 Not Available [facility] 3 00:43:05 Folliculit is 57167169 Active 2023 Kelby Burnette MD [address], [place], [address] , [place] [facility] 4 14:18:20 Cervical lymphadeno elin 665494613 Active 2023 Kelby Burnette MD [address], [place], [address] , [facility] [place] [facility] 4 14:18:29 Bilateral wrist pain 3644906975081 9105 Active 2023 Basim Davenport MD [address], [place], [address] , [place] [facility] 4 10:52:27 Carpal tunnel syndrome of right wrist 2513175887135 08 Active 2023 Basim Davenport MD [address], [place], [address] , [facility] 4 10:53:16 Obesity 180719368 Active 2023 Basim Davenport MD [address], [place], [address] , [place] [facility] 4 10:57:14 Bronchitis 03180035 Active 2023 Basim Davenport MD [address], [place], [address] , [facility] 4 10:57:28 Pain of right shoulder joint 2540737309570 9100 Active 2023 Basim Davenport MD [address], [place], [address] , [place] [facility] 4 11:57:44 Rupture of rotator cuff of right shoulder 1163376500314 9103 Active 2023 Basim Davenport MD [address], [place], [address] , [facility] 4 12:17:23 Pain of right wrist 3146964203270 00 Active 2023 Basim Davenport MD [address], [place], [address] , [facility] 4 12:18:22 Mass of neck 826221865 Active 2024 Basim Davenport MD [address], [place], [address] , [facility] 5 15:58:48 Sinusitis 04052475 Active 2024 Basim Davenport MD [address], [place], [address] , [facility] 5 15:59:18 Seasonal allergic rhinitis 825297735 Active 2024 Basim Davenport MD [address], [place], [address] , [facility] 5 15:59:38 Cough 39953600 Active 2024 Basim Davenport MD [address], [place], [address] , [facility] 5 16:02:26 Cigarette smoker 88279932 Active 2024 Basim Davenport MD [address], [place], [address] , [facility] 5 16:12:54 Acute urinary tract infection 066641962 Active 2020 Not Available [facility] 3 00:43:05 72099634 Active 2018 Not Available [facility] 3 00:43:05 Problem Notes None recorded. Procedures Surgical History Date Name Laterality Status Provider Name and Address Organization Details Recorded Time Hernia Surgery completed Not Available [facility] 05/08/2022 00:41:20 [place] [facility] completed Not Available [facility] 05/08/2022 00:41:20 EXCISION OR DESTRUCTION, INTRANASAL LESION; INTERNAL APPROACH (SURG) completed Basim Davenport MD [address] [facility], [place], [address], [facility] [employer] [facility] 05/19/2023 10:47:01 Imaging Results None recorded. Procedure Notes None recorded. Medical Equipment None Reported. Allergies Allergen ID Allergen Name Allergen Category Reaction Reaction Severity Criticality Documentation Date Start Date Code Code System Note Provider Name and Address Organization Details Recorded Time 1 vancomyci n medicatio n itching Not available Not available 05/08/2022 90013 RxNorm Not Available [facility] 00:45:32 Medications Name Sig Start Date Stop Date Status Note LastModified by Organization Details LastModified Time quetiapine 25 mg tablet TAKE 1 TABLET BY MOUTH TWICE DAILY 07/24 completed Not Available Not Available Not Available cyclobenzap rine 10 mg tablet 10/08 completed Not Available Not Available Not Available amoxicillin 500 mg capsule TK 1 C PO BID FOR 10 DAYS active Not Available Not Available No t Available medroxyprog esterone 10 mg tablet TAKE 1 TABLET BY MOUTH DAILY X 10 DAYS. 07/24 completed Not Available Not Available Not Available neomycin-po lymyxin-hyd rocort 3.5 mg/mL-10,00 0 unit/mL-1 % ear solution INT 4 GTS JAE TID FOR 7 DAYS active Not Available Not Available No t Available clindamycin HCl 300 mg capsule 07/02 completed Not Available Not Available Not Available cetirizine 10 mg tablet Take 1 tablet every day by oral route as directed for 30 days. 2024 active Not Available Not Available Not Avai lable azithromyci n 250 mg tablet FOLLOW PACKAGE DIRECTION S 11/10 completed Not Available Not Available Not Available ibuprofen 800 mg tablet 11/10 completed Not Available Not Available Not Available sumatriptan 100 mg tablet TAKE 1 TABLET BY MOUTH EVERY DAY NEEDED FOR MIGRAINE 07/24 completed Not Available Not Available Not Available hydrocodone 5 mg-acetamin ophen 325 mg tablet TAKE 1 TABLET BY MOUTH EVERY 4 HOURS NEEDED 03/27 completed Not Available Not Available Not Available phenazopyri dine 200 mg tablet TAKE 1 TABLET BY MOUTH THREE TIMES DAILY NEEDED FOR PAIN 12/09 completed Not Available Not Available Not Available quetiapine 200 mg tablet 07/24 completed Not Available Not Available Not Available metronidazo le 500 mg tablet TAKE 1 TABLET BY MOUTH TWICE DAILY FOR 7 DAYS 03/27 completed Not Available Not Available Not Available ciprofloxac in 500 mg tablet 01/16 completed Not Available Not Available Not Available sulfamethox azole 800 mg-trimetho prim 160 mg tablet TAKE 1 TABLET BY MOUTH EVERY 12 HOURS 10/30 completed Not Available Not Available Not Available quetiapine 100 mg tablet 07/24 completed Not Available Not Available Not Available amoxicillin 500 mg tablet Take 1 tablet twice a day by oral route for 10 days. 01/16 completed Not Available Not Available Not Available famotidine 20 mg tablet Take 1 tablet twice a day by oral route as directed for 10 days. active Not Available Not Available No t Available dicyclomine 20 mg tablet 07/24 completed Not Available Not Available Not Available baclofen 10 mg tablet TAKE ONE TABLET BY MOUTH TWO TO THREE TIMES DAILY NEEDED FOR PAIN 05/18 completed Not Available Not Available Not Available cephalexin 500 mg capsule TAKE ONE CAPSULE BY MOUTH TWICE DAILY 11/03 completed Not Available Not Available Not Available prednisone 50 mg tablet TAKE 1 TABLET BY MOUTH EVERY MORNING FOR 7 DAYS active Not Available Not Available No t Available benztropine 1 mg tablet 07/24 completed Not Available Not Available Not Available benztropine 2 mg tablet 07/24 completed Not Available Not Available Not Available diclofenac sodium 75 mg tablet,tim yed release TAKE 1 TABLET BY MOUTH EVERY 12 HOURS NEEDED 12/14 completed Not Available Not Available Not Available mupirocin 2 % topical ointment APPLY SMALL AMOUNT TOPICALLY TO THE AFFECTED AREA THREE TIMES DAILY 11/10 completed Not Available Not Available Not Available mirtazapine 15 mg tablet TAKE 1 TABLET BY MOUTH AT BEDTIME 07/24 completed Not Available Not Available Not Available ibuprofen 600 mg tablet 01/16 completed Not Available Not Available Not Available methylpredn isolone 4 mg tablets in a dose pack FOLLOW PACKAGE DIRECTION S 11/10 completed Not Available Not Available Not Available ondansetron 4 mg disintegrat ing tablet DIS 1 T ON THE TONGUE Q 6 TO 8 H FOR 5 DAYS PRN active Not Available Not Available No t Available cefdinir 300 mg capsule TAKE 1 CAPSULE BY MOUTH EVERY 12 HOURS 05/18 completed Not Available Not Available Not Available fluticasone propionate 50 mcg/actuati on nasal spray,suspe nsion [place] 2 sprays every day by intranasa l route as directed for 30 days. 2024 active Not Available Not Available Not Avai lable sertraline 50 mg tablet TK 1 T PO QAM 07/02 completed Not Available Not Available Not Available amoxicillin 875 mg-potassiu m clavulanate 125 mg tablet TAKE 1 TABLET BY MOUTH EVERY 12 HOURS FOR 10 DAYS active Not Available Not Available No t Available amoxicillin 500 mg-potassiu m clavulanate 125 mg tablet TAKE 1 TABLET BY MOUTH TWICE DAILY FOR 5 DAYS 12/09 completed Not Available Not Available Not Available Liver-Kidne y Cleanser capsule Take by oral route. 10/30 completed Not Available Not Available Not Available nitrofurant oin monohydrate /macrocryst als 100 mg capsule TAKE 1 CAPSULE BY MOUTH EVERY 12 HOURS FOR 10 DAYS 07/24 completed Not Available Not Available Not Available lysine 10/30 completed Not Available Not Available Not Available Grape Seed 07/24 completed Not Available Not Available Not Available Vitamin 1 tab po daily 05/16 completed Not Available Not Available Not Available OneTouch Delica Lancets 33 gauge 05/12 completed Not Available Not Available Not Available Probiotic 03/27 completed Not Available Not Available Not Available OneTouch Verio test strips 05/12 completed Not Available Not Available Not Available melatonin 5 mg chewable tablet Take by oral route. 07/24 completed Not Available Not Available Not Available ID NOW COVID-19 Test Kit TEST DIRECTED active Not Available Not Available No t Available Vitals Date Recorded Body height Body mass index (BMI) Body weight Body temperature Provider Name and Address Organization Details Last Updated DateTime 03/27/2023 157.48 cm 34.9 kg/m2 22625.14 g 97.6 [degF] Alison Garner RN [facility] [employer] [facility] 03/27/2023 13:59:15 Date Recorded Body height Body mass index (BMI) Body weight Body temperature Heart rate Respiratory rate Oxygen saturation Oxygen saturation in Arterial blood by Pulse oximetry Systolic blood pressure Diastolic blood pressure Provider Name and Address Organization Details Last Updated DateTime 4 157.48 cm 35.5 kg/m2 88424.3 2 g 98 [degF] 78 /min 16 /min 99 % 99 % 130 mm[Hg] 78 mm[Hg] Ole Waite [facility] [employer] [facility] 4 10:43:29 Date Recorded Body height Body mass index (BMI) Body weight Body temperature Heart rate Respiratory rate Oxygen saturation Oxygen saturation in Arterial blood by Pulse oximetry Systolic blood pressure Diastolic blood pressure Provider Name and Address Organization Details Last Updated DateTime 4 157.48 cm 33.7 kg/m2 56191.3 5 g 98 [degF] 76 /min 20 /min 99 % 99 % 128 mm[Hg] 70 mm[Hg] Ole [facility] [employer] [facility] 4 11:46:21 Date Recorded Body height Body mass index (BMI) Body weight Body temperature Oxygen saturation Oxygen saturation in Arterial blood by Pulse oximetry Heart rate Systolic blood pressure Diastolic blood pressure Provider Name and Address Organization Details Last Updated DateTime 5 157.48 cm 34.8 kg/m2 61338.5 5 g 98.2 [degF] 99 % 99 % 78 /min 118 mm[Hg] 84 mm[Hg] Eli Herrera RN [facility] [employer] [facility] 5 15:52:26 Date Recorded Body height Body mass index (BMI) Body weight Body temperature Oxygen saturation Oxygen saturation in Arterial blood by Pulse oximetry Heart rate Systolic blood pressure Diastolic blood pressure Provider Name and Address Organization Details Last Updated DateTime 5 157.48 cm 35.4 kg/m2 56851.4 3 g 98.1 [degF] 96 % 96 % 86 /min 140 mm[Hg] 82 mm[Hg] Eli Herrera RN [facility] [employer] [facility] 5 17:32:02 Social History Question Answer Notes LastModified by Organization Details LastModified Time Tobacco Smoking Status Current Every Day Smoker Not Available [facility] 05/08/2022 00:40:38 Do You Have An Advance Directive? No Information not available 07/24/2022 What Is Your Level Of Alcohol Consumption? Moderate [email or web address].[id number] [id number] Information not available 05/08/2022 Do You Wear A Helmet When Biking? No MIGRATION.0301 [id number] Information not available 05/08/2022 Is Blood Transfusion Acceptable In An Emergency? Yes Information not available 07/24/2022 What Is Your Level Of Caffeine Consumption? Occasional [email or web address].0301 [id number] Information not available 05/08/2022 What Is Your Code Status? Full Code Information not available 07/24/2022 In The 14 Days Before Symptom Onset, Have You Had Close Contact With A Laboratory-confi rmed COVID-19 While That Case Was Ill? No MIGRATION.0301 [id number] Information not available 05/08/2022 In The 14 Days Before Symptom Onset, Have You Had Close Contact With A Person Who Is Under Investigation For COVID-19 While That Person Was Ill? No MIGRATION.0301 [id number] Information not available 05/08/2022 Are You Currently Employed? No Information not available 07/24/2022 What Type Of Diet Are You Following? REGULAR MIGRATION.0301 [id number] Information not available 05/08/2022 Have There Been Any Changes To Your Family Or Social Situation? Yes Last Week Takes Care Of Mom- Information not available 07/24/2022 Do You Use Insect Repellent Routinely? Yes MIGRATION.0301 [id number] Information not available 05/08/2022 Where Do You Live? SingleLevelHouse Information not available 07/24/2022 Do You Have A Medical Power Of Parking Meter Attendant? No Information not available 07/24/2022 What Was The Date Of Your Most Recent Tobacco Screening? 07/04/2020 MIGRATION.0301 [id number] Information not available 05/08/2022 How Many Children Do You Have? 4 Information not available 07/24/2022 Have You Ever Been Counseled For Unhealthy Alcohol Use? No MIGRATION.0301 [id number] Information not available 05/08/2022 Do You Have Any Pets? Yes MIGRATION.0301 [id number] Information not available 05/08/2022 What Is Your Relationship Status? Information not available 07/24/2022 Do You Use Your Seat Belt Or Car Seat Routinely? Yes MIGRATION.0301 [id number] Information not available 05/08/2022 Do You Have Smoke And Carbon Monoxide Detectors In Your Home? Yes MIGRATION.0301 [id number] Information not available 05/08/2022 Are There Any Smokers In Your House? Yes MIGRATION.0301 [id number] Information not available 05/08/2022 Do You Participate In Social Media? Yes MIGRATION.0301 [id number] Information not available 05/08/2022 Do You Feel Stressed (tense, Restless, Nervous, Or Anxious, Or Unable To Sleep At Night)? [id number] Information not available 07/24/2022 Do You Use Any Illicit Or Recreational Drugs? No MIGRATION.0301 063085 Information not available 05/08/2022 Do You Use Sunscreen Routinely? Yes MIGRATION.0301 [id number] Information not available 05/08/2022 Has Tobacco Cessation Counseling Been Provided? No MIGRATION.0301 [id number] Information not available 05/08/2022 Have You Recently Traveled Abroad? No MIGRATION.0301 630066 Information not available 05/08/2022 Do You Have Any Dietary Restrictions? No MIGRATION.0301 737442 Information not available 05/08/2022 Do You Or Have You Ever Used Any Other Forms Of Tobacco Or Nicotine? No MIGRATION.0301 [id number] Information not available 05/08/2022 Sex: Unknown Functional Status Question Answer Note LastModified by Organizat ion Details LastModified Time What is your exercise level? None Active [id number] Information not available 05/08/2022 Mental Status None recorded. Family History Relationship Description Onset Age of this Age Resolved Age Notes LastModified by Organization Details LastModified Time Mother Family history of malignant neoplasm [id number] Not available 05/08/2022 00:41:20 Medical History Condition Response MRSA N ALLERGIES/HAYFEVER N BACK INJECTIONS N LUNG DISEASE/DISORDER N ESRD N HISTORY OF DRUG ABUSE N INSOMNIA N RADIATION / CHEMOTHERAPY N COPD N HIGH CHOLESTEROL / HYPERLIPIDEMIA N HYPERTHYROIDISM N PVD N BLOOD DISEASES N EAR OR HEARING PROBLEMS N HYPOTHYROIDISM N SHINGLES N DEPRESSION (INCLUDING POST ) N BACK / NECK PROBLEMS N HAVE YOU BEEN HOSPITALIZED OR SEEN IN [facility] ER IN THE PAST YEAR ? N FAILED BACK SYNDROME N STROKE/TIA N POLYCYSTIC OVARIES N OBESITY N ANEURYSM N HISTORY WITH COMPLICATIONS WITH ANESTHES IA ? N Do you have Advance directive? N USE OF BLOOD THINNERS N NO SIGNIFICANT PAST MEDICAL HISTORY N DIABETES, TYPE N VON WILLIBRAND'S DISEASE N PARATHYROID DISEASE N ENT N SEASONAL ALLERGIES N HEARTBURN / REFLUX N POST LAMINECTOMY SYNDROME N HEPATITIS / LIVER DISEASE N SLEEP DISORDER N ARTERIAL INSUFFICIENCY N SEIZURES/EPILEPSY N HEADACHES/MIGRAINES N CHF N PACEMAKER N DIZZINESS N HEART DISEASE/HEART PROBLEMS N AIDS/HIV N NEUROPSYCHOLOGICAL N HYPERTENSION N CANCER: SPECIFY N TOURETTE'S N ANXIETY DISORDER Y BLOOD TRANSFUSION N ANEMIA/BLOOD DISORDER N ANESTHESIA COMPLICATIONS N CHRONIC EAR INFECTIONS N ATRIAL FIBRILLATION N AUTOIMMUNE DISEASE N TUBERCULOSIS N Gynecological History Statement/Question Response Date of Last Colonoscopy Flow Moderate Most Recent Bone Density Date of LMP 07/08/2022 Frequency of Cycle (Q days) 28 Duration of Flow (days) 4 Age at Menarche 13 Most Recent Mammogram Obstetrics History GPAL:G 0 P 0 0 0 0 Immunizations Vaccine Type Date Status Note Provider Nam e and Address Organization Details Recorded Time Tdap 07/03/2018 completed Not Available [facility] 05/08/2022 00:45:22 Past Encounters Encounter ID Performer Location Encounter Start Date Encounter Closed Date Diagnosis/Indication Diagnosis SNOMED-CT Code Diagnosis ICD10 Code Diagnosis Note [id number] [facility] [address] [facility] [address] [address] 05/16/2020 00:00:00 05/16/2020 11:09:04 [id number] [facility] [address] [facility] [address] [place] [address] 06/06/2020 00:00:00 06/06/2020 12:20:16 [id number] [facility] [address] [facility] [address] [place] [address] 07/04/2020 00:00:00 07/04/2020 09:53:38 [id number] [facility] [place] [id number] 11/03/2020 00:00:00 11/03/2020 15:22:17 [id number] [facility] [address] [place] [address] 02/16/2021 00:00:00 02/16/2021 12:27:10 [id number] [facility] [address] [place] [address] 10/30/2021 00:00:00 10/30/2021 15:29:13 [id number] Ana Melgar NP [address] [address] 07/24/2022 09:10:59 07/24/2022 09:40:57 Mass of nose 325376430 R22.0 Referring to ENT for removal. [id number] Kelby Burnette MD [facility] [address] [place] [address] 08/07/2022 11:08:05 08/07/2022 11:57:52 Papilloma of nasal vestibule [id number] D14.0 [id number] Kelby Burnette MD [facility] [address] [place] [address] 09/26/2022 16:12:37 09/27/2022 07:54:14 Papilloma of nasal vestibule [id number] D14.0 [id number] Kelby Burnette MD [facility] [address] [place] [address] 03/27/2023 13:51:41 03/27/2023 14:57:22 Folliculitis [id number] L73.9 Cervical lymphadenopathy 155503451 R59.0 [id number] Basim Davenport MD [facility] [address] [place] [address] 05/19/2023 10:32:51 05/19/2023 11:06:31 Bilateral wrist pain [id number] 1323521 M25.531 Carpal aurelio mateus syndrome of right wrist 8290025168 55350 G56.01 Obesity 724151731 E66.9 Bronchitis 35455467 J40 Seen in em ergency clinic [id number] Z76.89 Staff to get recent UC records. [id number] Basim Davenport MD [address] [address] 11/11/2023 11:37:08 11/11/2023 12:27:24 Seen in emergency clinic [id number] Z76.89 visit - Staff to get recent UC records. Pain of ri ght shoulder joint [id number] 1773168 M25.511 Carpal aurelio mateus syndrome of right wrist 7849268129 46166 G56.01 Obesity 178375062 E66.9 Rupture of rotator cuff of right shoulder 8194323040 5639174 M75.101 Numbness of hand 2426993 04 R20.0 Rt Pain of right wrist 3169 524956 98492 M25.008 [id number] Basim Davenport MD [address] [address] 04/20/2024 15:36:27 04/20/2024 16:25:13 Mass of neck 380856083 R22.1 Cervical lymphadenopathy 104953437 R59.0 Lt - 2 Sinusitis 99009660 J32.9 Seasonal a llergic rhinitis 088980757 J30.2 Cough 12201433 R05.9 Cigarette smoker 8691865 7 F17.874 [id number] Basim Davenport MD [address] [address] 04/29/2024 17:23:40 04/29/2024 17:56:45 Mass of neck 539198451 R22.1 Improved Cervical lymphadenopathy 392537954 R59.0 Lt - 2 Sinusitis 68694033 J32.9 Resolved Seasonal a llergic rhinitis 920751969 J30.2 Cough 47110304 R05.9 Cigarette smoker 0319114 7 F17.210 Health Concerns Section Related Observation LastModified by Organization Detai ls LastModified Time None Recorded Concern Status LastModified by Organization Details LastModified Time None Recorded Advance Directives Directive N: Payers Encounter Date Sequence Insurance Name Policy Number Policy Riley Covered Member ID Riley Member ID Guarantor Name 03/27/2023 1 [facility] ON OR AFTER 09/07/20 (MEDICAID REPLACEMENT - HMO) Jenny Agudelo [id number] Jenny Vladimir Magnus-La uer 05/19/2023 1 [facility] ON OR AFTER 09/07/20 (MEDICAID REPLACEMENT - HMO) Jenny Agudelo [id number] Jenny Agudelo-La uer 11/11/2023 1 [facility] ON OR AFTER 09/07/20 (MEDICAID REPLACEMENT - HMO) Jenny Agudelo [id number] Jenny Vladimir Magnus-La uer 04/20/2024 1 [facility] ON OR AFTER 09/07/20 (MEDICAID REPLACEMENT - HMO) Jenny Agudelo [id number] Jenny Agudelo-La uer 04/29/2024 1 [facility] ON OR AFTER 09/07/20 (MEDICAID REPLACEMENT - HMO) Jenny Agudelo [id number] Jenny Vladimir Magnus-La uer Notes Date Note Type Note Provider Name and Address Organization Details Recorded Time 03/27/2023 text/html patient reports right nasal crusting and pain in addition to right cervical adenopathy which is painful over the past 3 days. She has had a nose bleed as well. Kelby Burnette MD [address] [place] [address], [place] [address], [place], [address], [facility] 03/27/2023 14:19:20 05/19/2023 text/html ACV: C/o b/l hand tingling, numbness for last few weeks. Pt was seen at last week for this and had x-ray C-spine and it was normal as per pt. So pt was given Baclofen and its not helping her. At times, she has tingling and numbness going over her Rt forearm and Rt arm. More on Rt than Lt side. C/o cough, congestion, drainage, fatigue, fever for last 3-4 days. Pt denies any known sick contact. Pt is doing otc meds, but still not getting better. Denies any chance of . Basim Davenport MD [address], [facility] [address], [place], [address], [employer] 05/19/2023 11:04:46 11/11/2023 text/html fuv: Pt was seen at in [place] 1 week ago due to Rt shoulder area pain. Pt did not get any imagine there, got 2 Rx meds and was advised to f/u with PCP for further work off note due to her Rt shoulder pain. C/o Rt shoulder pain since 05/31. 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 Pt was seen at at that time due to her Rt shoulder and Rt wrist area pain and was referred to hand surgeon and Ortho. Pt has seen Ortho & hand surgeon at [facility] in 08/31. Pt got x-ray and US done with them and she has torn rotator cuff tear in her Rt shoulder, but now they are not able to see her since this is under workman's comp as per pt. Pt has not gone for x-ray of her b/l wrist yet (from 05/19/23 visit). Denies any chance of . Basim Davenport MD [address], [facility] [address], [place], [address], [employer] 11/11/2023 12:20:23 04/20/2024 text/html ACV: C/o neck area lump for last 2 months, on/off. Pt had bad URI/sinusitis last month and she was doing otc meds, has not seen anyone for hit. At times, pt says she gets chocking sensations over her Lt side of neck (not with eating/swallowing ) and it lasts for few seconds. No n/v/c/d/blood in stool/chest pain/sob/fever/ch ills. Still has congestion and cough ++. 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 Basim Davenport MD [address], [facility] [address], [place], [address], [employer] 04/20/2024 16:15:04 04/29/2024 text/html ACV: Pt needs a note for her to RTW without any restrictions. Pt is feeling overall much better now. No other new concern. Pt has not gone for x-ray Or US yet. C/o neck area lump for last 2 months, on/off. Pt had bad URI/sinusitis last month and she was doing otc meds, has not seen anyone for hit. At times, pt says she gets chocking sensations over her Lt side of neck (not with eating/swallowing ) and it lasts for few seconds. No n/v/c/d/blood in stool/chest pain/sob/fever/ch ills. Still has congestion and cough ++. 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 Basim Davenport MD [address] [facility], [facility] [address], [place], [address], [place] [facility] [employer] 04/29/2024 17:58:34 OBGyn Episode No OBEpisode recorded.
--- OUTSIDE RECORDS SUMMARY | 2024-05-01 09:36 | XMS_ITS | Clinical Summary ---
Author Organization [facility] Address [address] [place], [place] [address] Care Team Providers Care Material Analyst Name Role Phone Trish Whitehead MD Primary Care Provider [phone] Social History Tobacco Use Types Packs/Day Years Used Date Smoking Tobacco: Never Assessed Comments Unknown Sex and Gender Information Value Date Recorded Sex Assigned at Not on file Legal Sex Female 4:09 PM CDT Gender Identity Not on file Sexual Orientation Not on file Plan of Treatment Health Maintenance Due Date Last Done Comments Cervical Cancer Screening Pa p Smear (Age 30 to 64) Every 3 Years 1985 Annual Physical 1988 Hepatitis C 2003 DTaP, Tdap and Td Vaccines ( 1 - Tdap) 2004 Hepatitis B Vaccines (1 of 3 - 19+ 3-dose series) 2004 Cervical Cancer Screening Pa p with HPV Testing (Age 30 to 64) Every 5 Years 2015 Cervical Cancer Screening with HPV 2015 COVID-19 Vaccine (2023-2 5 season) 2023 Influenza Adult (#1) 2023 HPV Vaccines Aged Out No longer eligi ble based on patient's age to complete this topic Meningococcal B Vaccine Aged Out No l onger eligible based on patient's age to complete this topic Meningococcal Vaccine Aged Out No suki rah eligible based on patient's age to complete this topic Pneumococcal Vaccine: Pediat rics (0 to 5 Years) and At-Risk Patients (6 to 64 Years) Aged Out No longer eligible b ased on patient's age to complete this topic RSV Immunizations Under 20 Months Aged Out No longer eligible based on patient's age to complete this topic Care Teams Material Analyst Relationship Specialty Start Date End Date Trish Whitehead MD PCP - General 04/11/11
--- OUTSIDE RECORDS SUMMARY | 2024-05-01 09:36 | XMS_ITS | Patient Health Summary ---
Author Organization [facility] Address [address] [place] [address] Care Team Providers Care Plans Examiner Name Role Phone RamónAna cunha Nilesh ELLIS-FRYLINE ATTENDANT Primary Care Provider Note from [facility] [place],non-owned Affiliates and Associated Physician Practices is amultiple site organization consisting of ambulatory clinics and hospital sitesin [place], [place], [place] and [place]. This disclosure is being madepursuant to the Care Everywhere program and may not contain all information available regarding this patient. Last updated 17.[facility] Allergies * Vancomycin(Itching) Medications * Be aware that medications may not be up to date on this document. Alwaysverify current medications with the patient. * mupirocin (BACTROBAN) 2 % ointment(Started 10/31/2019) Apply to affected area 3 times daily To right ear Social History Tobacco Use Types Packs/Day Years Used Date Smoking Tobacco: Never Assessed Sex and Gender Information Value Date Recorded Sex Assigned at Not on file Gender Identity Not on file Sexual Orientation Not on file Last Filed Vital Signs Vital Sign Reading Time Taken Comments Blood Pressure 124/72 10/31/2019 12:52 PM CDT Pulse 75 10/31/2019 12:52 PM CDT Temperature 36.8 C (98.2 F) 10/31/2019 12:52 PM CDT Respiratory Rate 16 10/31/2019 12:52 PM CDT Oxygen Saturation 98% 10/31/2019 12:52 PM CDT Inhaled Oxygen Concentration - - Weight 77.1 kg (170 lb) 10/31/2019 12:52 PM CDT Height 157.5 cm (5' 2 ) 10/31/2019 12:52 PM CDT Body Mass Index 31.09 10/31/2019 12:52 PM CDT Care Teams Plans Examiner Relationship Specialty Start Date End Date Ana Melgar, LINSEED OIL PRESS TENDER-FRYLINE ATTENDANT [address] [place] [phone] PCP - General Nurse Practitioner Family 10/31/19
--- OUTSIDE RECORDS SUMMARY | 2024-05-01 09:36 | XMS_ITS | Referral Summary ---
Author Organization [facility] Address [address] [facility] [place] [address] Care Team Providers Care Master Lay Out Specialist Name Role Phone CarteretWale cunhachristopher Galloway APRN-DRAFTER ASSISTANT Primary Care Provider Source Comments [facility],non-owned Affiliates and Associated Physician Practices is amultiple site organization consisting of ambulatory clinics and hospital sitesin [place], [place], [place] and [place]. This disclosure is being madepursuant to the Care Everywhere program and may not contain all information available regarding this patient. Last updated 17.[facility] Allergies Active Allergy Reactions Criticality Noted Date Comments Vancomycin Itching 10/31/2019 Medications * Be aware that medications may not be up to date on this document. Alwaysverify current medications with the patient. Medication Sig Dispensed Refills Start Date End Date Status mupirocin (BACTROBAN) 2 % ointment Apply to affected area 3 times daily To right ear 22 g 10/31/2019 Active Social History Tobacco Use Types Packs/Day Years [...] Mass Index 31.09 10/31/2019 12:52 PM CDT Plan of Treatment Not on file Care Teams Master Lay Out Specialist Relationship Specialty Start Date End Date Ana Melgar, STRAW HAT BRIM CUTTER OPERATOR-DRAFTER ASSISTANT [address] [place] [phone] PCP - General Nurse Practitioner Family 10/31/19
--- OUTSIDE RECORDS SUMMARY | 2024-05-01 09:36 | XMS_ITS | Clinical Summary ---
Author Organization [email or web address] Address [address] [facility] [place] [address] Care Team Providers Care Director Of Diagnostic Imaging Name Role Phone StreetAna cunha Nliesh ELLIS-COMPUTATIONAL PHYSICIST Primary Care Provider Source Comments [email or web address],non-owned Affiliates and Associated Physician Practices is amultiple site organization consisting of ambulatory clinics and hospital sitesin [place], [place], [place] and [place]. This disclosure is being madepursuant to the Care Everywhere program and may not contain all information available regarding this patient. Last updated 17.[email or web address] Allergies Active Allergy Reactions Criticality Noted Date [...] 10/31/2019 12:52 PM CDT Plan of Treatment Health Maintenance Due Date Last Done Comments PAP SMEAR 1985 HIV SCREENING 2000 HEPATITIS C SCREENING 03/13/2003 DTAP/TDAP/TD VACCINES (1 - Tdap) 2004 HEPATITIS B VACCINE (1 of 3 - 19+ 3-dose series) 2004 COVID-19 VACCINE (1 - 2023-2 5 season) 2023 INFLUENZA VACCINE (#1) 2023 DEPRESSION SCREENING 03/10/2024 ZOSTER VACCINE (1 of 2) 2035 HIB VACCINE Aged Out No longer eligi ble based on patient's age to complete this topic HPV VACCINE Aged Out No longer eligi ble based on patient's age to complete this topic MENINGOCOCCAL (Group B) VACCINE Aged Out No longer eligible based on patient's age to complete this topic MENINGOCOCCAL VACCINE Aged Out No suki rah eligible based on patient's age to complete this topic PNEUMOCOCCAL VACCINE Aged Out No long er eligible based on patient's age to complete this topic Care Teams Director Of Diagnostic Imaging Relationship Specialty Start Date End Date Ana Melgar, LICENSED AIRCRAFT MAINTENANCE ENGINEER-COMPUTATIONAL PHYSICIST [address] [place] [phone] PCP - General Nurse Practitioner Family 10/31/19
== END 2024-05-01 09:33 | disposition home or self-care (01) ==
PROVIDERS: PCP Family Medicine; Visit Provider Family Medicine
DX: R05.9 Cough, unspecified (principal)
CPT/HCPCS: 71046

== ENCOUNTER 2024-07-24 11:50 | Emergency (ER) | payer OTHER, SELFPAY ==
--- OUTSIDE RECORDS SUMMARY | 2024-07-24 11:52 | XMS_ITS | Data Portability ---
Author Organization [place] [facility], Main Office Address [address] [place] [address] Care Team Providers Care Property Claims Adjuster Name Role Phone BASIM DAVENPORT Primary Care Provider [facility] [place] Transformation Lead [place] Transformation Lead PRABHA MIDDLETON Referring Provider [phone] Assessment Encounter Date Assessment Date Assessment LastModified by Organization Details LastModified Time 11/11/2023 11/11/2023 D/w pt about her findings and further plan of care. Answered all questions for pt. Pt will talk with her Maintainer Central Office/HR about this and will get the claim number. Pt will call Ortho and Hand surgeon at [place] with the updated info. Will try to find another Ortho if needed. No work until pt can be seen by Ortho/Hand specialist and further recommendations as per them. Meds as directed. RICE explained in detail. Diet and exercise explained. F/u in few weeks for Annual exam. X-ray wrists before next visit. Pt to get us a copy of her US Rt shoulder report. [email or web address] Not available 11/11/2023 12:17:49 04/20/2024 04/20/2024 Educated pt abou t alarming symptoms to monitor at home and get checked in ED if any concern. [email or web address] Not available 04/20/2024 16:13:31 04/29/2024 04/29/2024 Educated pt abou t alarming symptoms to monitor at home and get checked in ED if any concern. [email or web address] Not available 04/29/2024 17:42:41 05/04/2024 05/04/2024 39 yo F with - WELL ADULT VISIT - ALLERGIC RHINITIS - B/L WRIST PAIN, chronic - OBESITY I - SMOKER CXR: 05/01/24. D/w pt about her findings, recent labs & imagines and further plan of care. Will do routine labs. All meds verified with pt. Meds as directed. Diet and exercise explained in detail. Cont f/u with Ortho as per schedule. HM: WWE - 2023, normal as per pt. Cont f/u with Gyne as per schedule. Mammo - Never. At the age of 40 yrs. Flu - Pt declined. Tdap - 06/26. Gardasil - At pharmacy/HD. F/u in 2-3 weeks. Annual labs in 05/05. [email or web address] Not available 05/04/2024 16:04:42 Plan of Treatment Reminders Order Date Submit Date Provider Last Modified By Organization Details Last Modified Time Details Appointments None recorded. Lab glycohemogl obin, total, blood 2024 025 [email or web address] 4 [facility] (Lab), [address] [place], [address], 5 14:34:39 uric acid, serum or plasma 2024 025 4 [facility] (Lab), [address] [place], [address], 5 14:34:39 vitamin D3, 25-hydroxy, serum 2024 025 [email or web address] 4 [facility] (Lab), [address] [place], [address], 5 14:34:39 CBC w/ auto diff 2024 025 [email or web address] 4 [facility] (Lab), [address] [place], [address], 5 14:34:38 CMP, serum or plasma 2024 025 [email or web address] 4 [facility] (Lab), [address] [place], [address], 5 14:34:38 lipid panel, serum [address] (Lab), [address] [place], [address], 5 14:34:38 TSH, serum, reflex free T4 [address] (Lab), [address] [place], [address], 5 14:34:38 urinalysis complete, reflex culture [address] (Lab), [address] [place], [address], 5 14:34:39 Referral orthopedic surgeon referral 2023 024 [email or web address] [facility], [address], [place], [address], 4 09:20:45 hand surgeon referral - Please call patient to schedule an appointment . 2023 024 [email or web address] Jose Roberto Swanson, [facility] [place], [address], 4 09:10:40 Procedures None recorded. Surgeries None recorded. Imaging US, neck, soft tissue - Please call patient to schedule. 2024 025 [facility] ([facility]), [address] [place], [address], 5 12:34:48 XR, chest, [address] [facility], [address], [address], 5 14:29:19 XR, wrist, 3 or more view 2023 024 [email or web address] Not available 4 08:57:09 Medication Orders doxycycline hyclate 100 mg tablet 2024 [facility] #62766, [address], [place], [place], [id number], 5 15:58:10 varenicline tartrate 0.5 mg tablet [address] [facility] #91472, [address], [place], [place], [id number], 5 16:05:47 nicotine 21 mg/24 hr daily transdermal patch 2024 [facility] #46655, [address], [place], [place], [id number], 5 15:54:58 fluticasone propionate 50 mcg/actuati on nasal spray,suspe nsion 2024 025 [facility] #67815, [address], [place], [place], [id number], 5 17:44:16 cetirizine 10 mg tablet 2024 025 [facility] #48724, [address], [place], [place], [id number], 5 17:44:14 amoxicillin 875 mg-potassiu m clavulanate 125 mg tablet [address] [facility] #32977, [address], [place], [place], [id number], 5 15:43:36 fluticasone propionate 50 mcg/actuati on nasal spray,suspe nsion 2024 025 [facility] #45439, [address] [place], [place], [id number], 5 16:02:23 cetirizine 10 mg tablet 2024 025 [facility] #08850, [address] [place], [place], [id number], 5 16:02:25 diclofenac sodium 75 mg tablet,tim yed release [email or web address] [facility] #87636, [address] [place] [address], [id number], 5 15:53:29 azithromyci n 250 mg tablet [address] [facility] #33394, [address] [place] [address], [id number], 4 11:41:02 Medrol (Karan) 4 mg tablets in a dose pack [email or web address] [facility], [address] [place] [address], [id number], 4 11:41:06 Patient TargetsNo targets recorded. Patient Instructions Encounter Date Encounter Id Patient Instructions Last Modified By Organization Details Last Modified Time 11/11/2023 [id number] starting a weigh t loss plan: care instructions [email or web address] Not available 11/11/2023 12:18:50 05/04/2024 [id number] When You Want to Lose Weight: Care Instructions [email or web address] Not available 05/04/2024 15:55:19 Reason for Referral Hand Surgeon Referral for [place] rpal tunnel syndrome of right wrist B/l CTS, R>L Please call patient to schedule an appointment. Referring Physician: Basim Davenport, Family Medicine, Encounter Date: 05/19/2023 Orthopedic Surgeon Referral for Pain of right shoulder joint Rt shoulder pain since 05/31. Referring Physician: Basim Davenport, Family Medicine, Encounter Date: 11/11/2023 Results Created Date Observation Date Name Description Value Unit Range Abnormal Flag Note LastModifiedBy Organization Detail LastModifiedTime 05/01/1905/01/2024 XR, chest , 2 view No observ ation record ed. [email or web address] [facility] [address], [place], [address], 05/04/2024 15:48:46 Result Notes None recorded. Problems Name Problem SNOMED Code Status Onset Date Resolution Date Notes Provider Name and Address Organization Details Recorded Time Diabetes mellitus screening Active 2021 Not Available [facility] 3 00:43:04 Numbness of hand 611940489 Active 2021 Not Available [facility] 3 00:43:05 Migraine 96870231 Active 2021 Not Available [facility] 3 00:43:05 Menorrhagi a 957945610 Active 2020 Not Available [facility] 3 00:43:05 Mass of nose 771726288 Active 2022 Ana Melgar NP [address], [place], [address] , [facility] 3 09:35:13 Papilloma of nasal vestibule 075259020 Active 2022 Kelby Burnette MD [address], [place], [address] , [facility] 3 11:54:37 Furuncle 894886794 Active 2020 Not Available [facility] 3 00:43:05 Folliculit is 21398825 Active 2023 Kelby Burnette MD [address], [place], [address] , [facility] 4 14:18:20 Cervical lymphadeno elin 666859097 Active 2023 Kelby Burnette MD [address], [place], [address] , [place] [facility] 4 14:18:29 Bilateral wrist pain 6216397384621 9105 Active 2023 Basim Davenport MD [address], [place], [address] , [place] [facility] 4 10:52:27 Carpal tunnel syndrome of right wrist 9124248680765 08 Active 2023 Basim Davenport MD [address], [place], [address] , [place] [facility] 4 10:53:16 Obesity 603754225 Active 2023 Basim Davenport MD [address], [place], [address] , [place] [facility] 4 10:57:14 Bronchitis 55256214 Active 2023 Basim Davenport MD [address], [place], [address] , [place] [facility] 4 10:57:28 Pain of right shoulder joint 4864726468499 9100 Active 2023 Basim Davenport MD [address], [place], [address] , [place] [facility] 4 11:57:44 Rupture of rotator cuff of right shoulder 7868193807442 9103 Active 2023 Basim Davenport MD [address], [place], [address] , [place] [facility] 4 12:17:23 Pain of right wrist 7881895662873 00 Active 2023 Basim Davenport MD [address], [place], [address] , [place] [facility] 4 12:18:22 Mass of neck 679454022 Active 2024 Basim Davenport MD [address], [place], [address] , [employer] [facility] 5 15:58:48 Sinusitis 82424134 Active 2024 Basim Davenport MD [address], [place], [address] , [facility] 5 15:59:18 Seasonal allergic rhinitis 320427568 Active 2024 Basim Davenport MD [address], [place], [address] , [facility] [employer] [facility] 5 15:59:38 Cough 72170947 Active 2024 Basim Davenport MD [address], [place], [address] , [facility] [employer] [facility] 5 16:02:26 Cigarette smoker 17641824 Active 2024 Basim Davenport MD [address], [place], [address] , [facility] [employer] [facility] 5 16:12:54 Acute urinary tract infection 067259968 Active 2020 Not Available [facility] 3 00:43:05 24501654 Active 2018 Not Available [facility] 3 00:43:05 Problem Notes None recorded. Procedures Surgical History Date Name Laterality Status Provider Name and Address Organization Details Recorded Time 5 Smoking Cessation completed Basim Davenport MD [address], [place], [address], [employer] [facility] 05/04/2024 15:52:49 Hernia Surgery completed Not Available [facility] 05/08/2022 00:41:20 [place] Teeth completed Not Available [facility] 05/08/2022 00:41:20 EXCISION OR DESTRUCTION, INTRANASAL LESION; INTERNAL APPROACH (SURG) completed Basim Davenport MD [address], [place], [address], [facility] [employer] [facility] 05/19/2023 10:47:01 Imaging Results Imaging Date Name Status LastModified by Organiz ation Details LastModified Time 05/01/2024 XR, chest, 2 view completed [email or web address] [facility] [address], [place], [address], 05/04/2024 15:48:46 Procedure Notes None recorded. Medical Equipment None Reported. Allergies Allergen ID Allergen Name Allergen Category Reaction Reaction Severity Criticality Documentation Date Start Date Code Code System Note Provider Name and Address Organization Details Recorded Time 1 vancomyci n medicatio n itching Not available Not available 05/08/2022 69198 RxNorm Not Available [facility] 3 00:45:32 Medications Name Sig Start Date Stop [...] completed Not Available Not Available Not Available nicotine 21 mg/24 hr daily transdermal patch APPLY 1 PATCH EVERY DAY BY TRANSDERM AL ROUTE DIRECTED FOR 30 DAYS active Not Available Not Available No t Available benztropine 2 mg tablet 07/24 completed [...] propionate 50 mcg/actuati on nasal spray,suspe nsion [place] 2 sprays every day by intranasa l route as directed for 30 days. 2024 active Not Available Not Available Not Avai lable sertraline 50 mg tablet TK 1 T PO QAM 07/02 completed Not Available Not Available Not Available doxycycline hyclate 100 mg tablet TAKE 1 TABLET BY MOUTH TWICE DAILY FOR 7 DAYS DIRECTED active Not Available Not Available No t Available amoxicillin 875 mg-potassiu m clavulanate 125 mg tablet TAKE 1 TABLET BY MOUTH EVERY 12 HOURS FOR 10 DAYS 05/04 completed Not Available Not Available Not Available amoxicillin 500 mg-potassiu m clavulanate 125 [...] completed Not Available Not Available Not Available varenicline tartrate 0.5 mg tablet Take 1 tablet twice a day by oral route as directed for 30 days. active Not Available Not Available No t Available [employer] Delica Lancets 33 gauge 05/12 completed Not Available Not Available Not Available Probiotic 03/27 completed Not Available Not Available Not Available [employer] Verio test strips 03/05 /2021 completed Not Available Not Available Not Available [...] Updated DateTime 4 157.48 cm 35.5 kg/m2 93284.3 2 g 98 [degF] 78 /min 16 /min 99 % 99 % 130 mm[Hg] 78 mm[Hg] T[facility] 4 10:43:29 Date Recorded Body height Body mass index (BMI) Body weight Body temperature Heart rate Respiratory rate Oxygen saturation Oxygen saturation in Arterial blood by Pulse oximetry Systolic blood pressure Diastolic blood pressure Provider Name and Address Organization Details Last Updated DateTime 4 157.48 cm 33.7 kg/m2 53830.3 5 g 98 [degF] 76 /min 20 /min 99 % 99 % 128 mm[Hg] 70 mm[Hg] [facility] 4 11:46:21 Date Recorded Body height Body mass index (BMI) Body weight Body temperature Oxygen saturation Oxygen saturation in Arterial blood by Pulse oximetry Heart rate Systolic blood pressure Diastolic blood pressure Provider Name and Address Organization Details Last Updated DateTime 5 157.48 cm 34.8 kg/m2 21770.5 5 g 98.2 [degF] 99 % 99 % 78 /min 118 mm[Hg] 84 mm[Hg] Eli Herrera RN [employer] 5 15:52:26 Date Recorded Body height Body mass index (BMI) Body weight Body temperature Oxygen saturation Oxygen saturation in Arterial blood by Pulse oximetry Heart rate Systolic blood pressure Diastolic blood pressure Provider Name and Address Organization Details Last Updated DateTime 5 157.48 cm 35.4 kg/m2 05722.4 3 g 98.1 [degF] 96 % 96 % 86 /min 140 mm[Hg] 82 mm[Hg] Eli Herrera RN [facility] [employer] 17:32:02 Date Recorded Body height Body mass index (BMI) Body weight Body temperature Oxygen saturation Oxygen saturation in Arterial blood by Pulse oximetry Heart rate Respiratory rate Provider Name and Address Organization Details Last Updated DateTime 157.48 cm 35 kg/m2 49225.2 2 g 98.1 [degF] 99 % 99 % 86 /min 17 /min Lesley Marie [facility] [employer] 15:47:53 Date Recorded Systolic blood pressure Diastolic blood pressure Provider Name and Address Organization Details Last Updated DateTime 05/04/2024 130 mm[Hg] 78 mm[Hg] Basim Davenport MD [address] [facility] [facility], [place], [address], [facility] [employer] [facility] 05/04/2024 16:03:28 Social History Question Answer Notes LastModified by Organization Details LastModified Time Tobacco Smoking Status Current Every Day Smoker Not Available [facility] 05/08/2022 00:40:38 Do You Have An Advance Directive? No Information not available 07/24/2022 Do You Wear A Helmet When Biking? No MIGRATION.0301 [id number] Information not available 05/08/2022 Is Blood Transfusion Acceptable In An Emergency? Yes Information not available 07/24/2022 What Is Your Level Of Caffeine Consumption? Occasional MIGRATION.0301 [id number] Information not available 05/08/2022 What Is Your Code Status? Full Code Information not available 07/24/2022 In The 14 Days Before Symptom Onset, Have You Had Close Contact With A Laboratory-confi rmed COVID-19 While That Case Was Ill? No MIGRATION.0301 [id number] Information not available 05/08/2022 In The 14 Days Before Symptom Onset, Have You Had Close Contact With A Person Who Is Under Investigation For COVID-19 While That Person Was Ill? No MIGRATION.0301 [id number] Information not available 05/08/2022 What Type Of Diet Are You Following? REGULAR MIGRATION.0301 [id number] Information not available 05/08/2022 Have There Been Any Changes To Your Family Or Social Situation? Yes Last Week Takes Care Of Mom- Information not available 07/24/2022 Do You Use Insect Repellent Routinely? Yes MIGRATION.0301 [id number] Information not available 05/08/2022 Where Do You Live? SingleLevelHouse Information not available 07/24/2022 Do You Have A Medical Power Of Water Service Supervisor? No Information not available 07/24/2022 What Was The Date Of Your Most Recent Tobacco Screening? 07/04/2020 MIGRATION.0301 [id number] Information not available 05/08/2022 How Many Children Do You Have? 4 Information not available 07/24/2022 Have You Ever Been Counseled For Unhealthy Alcohol Use? No MIGRATION.0301 461763 Information not available 05/08/2022 Do You Have Any Pets? Yes MIGRATION.0301 [id number] Information not available 05/08/2022 What Is Your Relationship Status? Information not available 07/24/2022 Do You Use Your Seat Belt Or Car Seat Routinely? Yes MIGRATION.0301 439078 Information not available 05/08/2022 Do You Have Smoke And Carbon Monoxide Detectors In Your Home? Yes MIGRATION.0301 [id number] Information not available 05/08/2022 Are There Any Smokers In Your House? Yes MIGRATION.0301 334734 Information not available 05/08/2022 Do You Participate In Social Media? Yes MIGRATION.0301 [id number] Information not available 05/08/2022 Do You Use Sunscreen Routinely? Yes MIGRATION.0301 703555 Information not available 05/08/2022 Has Tobacco Cessation Counseling Been Provided? No MIGRATION.0301 540265 Information not available 05/08/2022 Have You Recently Traveled Abroad? No MIGRATION.0301 523367 Information not available 05/08/2022 Do You Have Any Dietary Restrictions? No MIGRATION.0301 710204 Information not available 05/08/2022 Sex: Unknown Functional Status Question Answer Note LastModified by Organizat ion Details LastModified Time Do you use any illicit or recreational drugs? No MIGRATION.[id number] [id number] Information not available 05/08/2022 Do you or have you ever used any other forms of tobacco or nicotine? No MIGRATION.937765 1821 Information not available 05/08/2022 What is your level of alcohol consumption? Moderate MIGRATION.634448 4530 Information not available 05/08/2022 Are you currently employed? No Information not available 07/24/2022 What is your occupation? recently fired Information not available 07/24/2022 What is your exercise level? None Active MIGRATION.325299 8453 Information not available 05/08/2022 Mental Status Question Answer Note LastModified by Organization D etails LastModified Time Do you feel stressed (tense, restless, nervous, or anxious, or unable to sleep at night)? [id number] Information not available 07/24/2022 Family History Relationship Description Onset Age of this Age Resolved Age Notes LastModified by Organization Details LastModified Time Mother Family history of malignant neoplasm MIGRATION.868 [id number] Not available 05/08/2022 00:41:20 Medical History Condition Response MRSA [id number]|2024-07-24 11:52:00|2024-07-24 11:52:00|XMS_ITS|TEJAS ANAND|External Medical Summaries|[id number]|" Clinical Summary Created on: July 24, 2024 Leslie Chu : 1985 Sex: Female Author Organization [facility] Address [address] [place] [address] Care Team Providers Care Property Claims Adjuster Name Role Phone Ana Melgar Nilesh ELLIS-CERTIFIED HAND THERAPIST Primary Care Provider Source Comments [facility],non-owned Affiliates and Associated Physician Practices is amultiple site organization consisting of ambulatory clinics and hospital sitesin [place], [place], [place] and [place]. This disclosure is being madepursuant to the Care Everywhere program and may not contain all information available regarding this patient. Last updated 17.[facility] Allergies Active Allergy Reactions Criticality Noted Date Comments Vancomycin Itching 10/31/2019 Medications * Be aware that medications may not be up to date on this document. Alwaysverify current medications with the patient. mupirocin (BACTROBAN) 2 % ointment Apply to affected area 3 times daily To right ear 22 g 10/31/2019 Active Social History Tobacco Use Types Packs/Day Years Used Date Smoking Tobacco: Never Assessed Comments Unknown Sex and Gender Information Value Date Recorded Sex Assigned at Not on file Legal Sex Female 9:58 AM CDT Gender Identity Not on file Sexual [...] - 19+ 3-dose series) 2004 COVID-19 VACCINE ( - 2023-2 5 season) 2023 DEPRESSION SCREENING 03/10/2024 INFLUENZA VACCINE (Season Ended) 2024 ZOSTER VACCINE (1 of 2) 2035 HIB VACCINE Aged Out No longer eligi ble based on patient's age to complete this topic HPV VACCINE Aged Out No longer eligi ble based on patient's age to complete this topic MENINGOCOCCAL (Group B) VACC INE SHARED DECISION-MAKING Aged Out No longer eligibl e based on patient's age to complete this topic MENINGOCOCCAL GROUPS A/C/Y/W VACCINE Aged Out No longer eligible b ased on patient's age to complete this topic PNEUMOCOCCAL VACCINE Aged Out No long er eligible based on patient's age to complete this topic Insurance [facility] * Guarantor: LESLIE WHITNEY Account Type Relation to Patient Date of Phone Billing Address Personal/Family [address] [id number] MEDICAID - OUT OF [place] [address] Care Teams Property Claims Adjuster Relationship Specialty Start Date End Date Ana Melgar, CASTING TESTER-CERTIFIED HAND THERAPIST [address] [place] [phone] PCP - General Nurse Practitioner Family 10/31/19 "
--- OUTSIDE RECORDS SUMMARY | 2024-07-24 11:52 | XMS_ITS | Clinical Summary ---
Author Organization [facility] Address [address] [place] [address] Care Team Providers Care Fringe Weaver Name Role Phone Basim Davenport MD Primary Care Provider [phone] Allergies Active Allergy Reactions Criticality Noted Date [...] on file Legal Sex Female 1:09 PM COST ACCOUNTING CLERK Gender Identity Not on file Sexual Orientation Not on file Occupation Industry Job Start Date Job End Date EMPLOYED - [employer] Not on file Not on file Not on file Obstetrics History Last Filed Vital Signs Vital Sign Reading Time Taken Comments Blood Pressure 138/88 03/03/2022 11:47 AM COST ACCOUNTING CLERK Pulse 91 03/03/2022 11:47 AM COST ACCOUNTING CLERK Temperature 36.4 C (97.6 F) 03/03/2022 11:47 AM COST ACCOUNTING CLERK Respiratory Rate 20 03/03/2022 11:47 AM COST ACCOUNTING CLERK Oxygen Saturation 100% 03/03/2022 11:47 AM COST ACCOUNTING CLERK Inhaled Oxygen Concentration - - Weight 81.6 [...] patient's age to complete this topic Insurance [facility] COMMERCIAL GENERIC WORKERS COMPENSATION GENERIC Care Teams Fringe Weaver Relationship Specialty Start Date End Date Basim Davenport MD [address] [facility] [place], [place] [id number] PCP - General Family Medicine 05/20/23
--- OUTSIDE RECORDS SUMMARY | 2024-07-24 11:52 | XMS_ITS | Referral Summary ---
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 Not on file Not on file Not on file Last Filed Vital Signs Vital Sign Reading Time Taken Comments Blood Pressure 138/88 03/03/2022 11:47 AM AIRPLANE NAVIGATOR Pulse 91 03/03/2022 11:47 AM AIRPLANE NAVIGATOR Temperature 36.4 C (97.6 F) 03/03/2022 11:47 AM AIRPLANE NAVIGATOR Respiratory Rate 20 03/03/2022 11:47 AM AIRPLANE NAVIGATOR Oxygen Saturation 100% 03/03/2022 11:47 AM AIRPLANE NAVIGATOR Inhaled Oxygen Concentration - - Weight 81.6 kg (180 lb) 08/08/2023 7:03 AM CDT Height 157.5 cm (5' 2 ) 08/08/2023 7:03 AM CDT Body Mass Index 32.92 08/08/2023 7:03 AM CDT Plan of Treatment Not on file Insurance [facility] [employer] COMPENSATION GENERIC Care Teams Lockstitch Coat Joiner Relationship Specialty Start Date End Date Basim Davenport MD [address] [place] [address] PCP - General Family Medicine 05/20/23
--- OUTSIDE RECORDS SUMMARY | 2024-07-24 11:52 | XMS_ITS | Clinical Summary ---
Author Organization [facility] Address [address] [place] [address] Care Team Providers Care Division Operations Specialist Name Role Phone Trish Whitehead MD Primary Care Provider [phone] Social History Tobacco Use Types Packs/Day Years [...] 2015 COVID-19 Vaccine (2023-2 5 season) 2023 HPV Vaccines Aged Out No longer eligi ble based on patient's age to complete this topic Meningococcal B Vaccine Aged Out No l onger eligible based on patient's age to complete this topic Meningococcal Vaccine Aged Out No suki rah eligible based on patient's age to complete this topic Pneumococcal Vaccine: Pediat rics (0 to 5 Years) and At-Risk Patients (6 to 49 Years) Aged Out No longer eligible b ased on patient's age to complete this topic RSV Immunizations Under 20 Months Aged Out No longer eligible based on patient's age to complete this topic Care Teams Division Operations Specialist Relationship Specialty Start Date End Date Trish Whitehead MD PCP - General 04/11/11
[2024-07-24 12:00] VITALS: BP 126/80; PULSE 85; RESP 16; TEMP 36.2; O2SAT 100
--- NOTE | 2024-07-24 12:01 | ED.GENADULT ---
HPI - General Adult General Chief complaint: Urogenital-Female Stated complaint: Lower back pain ?uti Time Seen by Provider: 07/24/24 12:01 Source: patient Mode of arrival: ambulatory Limitations: no limitations History of Present Illness HPI narrative: 39-year-old female patient presents to the [facility] with complaints of low back pain and concerns for UTI. Patient states she is approximately 7 weeks . Patient is 6, pr of 4 with 1 miscarriage. Patient states that she has not seen an OBGYN yet but has had an ultrasound to confirm . Patient states that about 2 days ago she started having some severe lower back pain but denies any pain with urination. Denies any blood in her urine. Denies any fevers body aches or chills. Patient states that her boyfriend had some leftover Keflex and she took 2 of those pills and states it was feeling better. Patient denies taking any Tylenol. Related Data Home Medications Medication Instructions Recorded Confirmed Last Taken Type cetirizine 10 mg tablet mg 07/24/24 Unknown History fluticasone propionate 50 intranasal 07/24/24 Unknown History mcg/actuation nasal spray,suspension Allergies Allergy/AdvReac Type Severity Reaction Status Date / Time vancomycin AdvReac Mild Itching Verified 07/24/24 11:53 Review of Systems Review of Systems: CONSTITUTIONAL: Denies fever, chills, or sweats. EYES: Denies visual changes, redness, or discharge. ENT: Denies rhinorrhea, congestion, sore throat, or otalgia. CARDIOVASCULAR: Denies chest pain, palpitations, or edema. RESPIRATORY: Denies cough or dyspnea. GASTROINTESTINAL: Denies abdominal pain, nausea, vomiting, or diarrhea. GENITOURINARY: Denies dysuria or hematuria. SKIN: Denies rash or itching. MUSCULOSKELETAL: Positive low back pain, denies joint pain, or myalgia. NEUROLOGIC: Denies headache, numbness, or weakness. PSYCHIATRIC: Denies anxiety or depression. [facility] Past Medical History Medical History Anxiety PTSD (post-traumatic stress disorder) Gestational diabetes Foot infection Inguinal hernia Surgical History Surgical History H/O inguinal hernia repair H/O oral surgery Social History Social History Smoking packs per day: 1 Smoking cigarettes per day: 20.0 Years smoked: 20 Smoking pack-years: 20.00 Smoking status: Current every day smoker Tobacco type: cigarettes Alcohol intake: current Drinks per week: 6 Alcohol use details: 4 drinks/day Substance use: never Substance use type: does not use Living arrangements: with family Spiritual care concerns: No Comments At the time of my signature I agree with nursing past medical history, surgical, social, and family history. There is no relevant family history pertinent to the presenting complaint. Exam Narrative: GENERAL: Well-appearing, well-nourished, and in no acute distress. HEAD: Normocephalic, atraumatic. EYES: PERRLA and EOMI. ENT: Nares clear, no rhinorrhea or epistaxis. Mucous membranes moist. NECK: Supple. No lymphadenopathy CHEST: Clear to auscultation. No respiratory distress. HEART: Regular rate and rhythm. No murmur heard. Normal peripheral pulses. ABDOMEN: Soft, flat, nondistended. No guarding, rebound tenderness, or rigid. No pulsatilla masses. Bowel sounds present in all four quadrants. No organomegaly. Negative Colvin´s sign. No periumbicial tenderness. No Supra public tenderness or distension. Good femoral pulses bilaterally. No hernia noted. No scars or surface trauma. no CVA tenderness on percussion EXTREMITIES: Normal range of motion. No edema. SKIN: Warm, dry, no rash. NEURO: No focal deficits. Alert and oriented x3. Course Course Level of Care: Express Care Visit Vital Signs Vital signs: Vital Signs Temperature 36.2 C L 07/24/24 12:00 Pulse Rate 85 07/24/24 12:00 Respiratory Rate 16 07/24/24 12:00 Blood Pressure 126/80 07/24/24 12:00 Pulse Oximetry 100 07/24/24 12:00 Oxygen Delivery Room Air 07/24/24 12:00 Temperature 36.2 C L 07/24/24 12:00 Pulse Rate 85 07/24/24 12:00 Respiratory Rate 16 07/24/24 12:00 Blood Pressure 126/80 07/24/24 12:00 Pulse Oximetry 100 07/24/24 12:00 Oxygen Delivery Room Air 07/24/24 12:00 Vital signs reviewed. Medical Decision Making MDM Narrative Medical decision making narrative: discussed with patient that her urine dip only shows 1+ leukocytes but no nitrates no blood. Discussed with her that the fact that she is not having any urinary symptoms is reassuring. Discussed with her that we go ahead and give her a wait and see prescription for antibiotic but I highly recommend that she take some Tylenol to see if this helps with the low back pain rather than treating it with antibiotics at this time. Discussed with her that if her symptoms worsen such as fever, body aches, chills, pain with urination or any other concerning symptoms then she can go ahead and start the antibiotic. We will send the urine off for culture and call her with the culture results when we receive them. Patient verbalized understanding denies any other questions or concerns at this time. Differential Diagnosis Differential Diagnosis: Differential diagnosis: Uncomplicated lower UTI, uncomplicated UTI, pyelonephritis Vital Signs Vital Signs: Vital Signs Temperature 36.2 C L 07/24/24 12:00 Pulse Rate 85 07/24/24 12:00 Respiratory Rate 16 07/24/24 12:00 Blood Pressure 126/80 07/24/24 12:00 Pulse Oximetry 100 07/24/24 12:00 Oxygen Delivery Room Air 07/24/24 12:00 Temperature 36.2 C L 07/24/24 12:00 Pulse Rate 85 07/24/24 12:00 Respiratory Rate 16 07/24/24 12:00 Blood Pressure 126/80 07/24/24 12:00 Pulse Oximetry 100 07/24/24 12:00 Oxygen Delivery Room Air 07/24/24 12:00 Lab Data Labs: Lab Results 07/24/24 Range/Units 12:00 POC Urine Color Dark POC Urine Clarity Cloudy POC Urine pH 6.5 POC Ur Specif [place] 1.030 POC Urine Protein Negative (Negative) POC Ur Glucose (UA) Negative (Negative) POC Urine Ketones Negative (Negative) POC Urine Blood Negative (Negative) POC Urine Nitrite Negative (Negative) POC Urine Bilirubin Negative (Negative) POC Urine Urobilinogen 0.2 POC U Leukocyte Esteras 1+ (Negative) Critical Care Time Critical Care Time Critical Care Time: No Discharge Plan Discharge Clinical Impression: First trimester Low back pain Qualifiers: Chronicity: acute Back pain laterality: bilateral Sciatica presence: without sciatica Qualified Code(s): M54.50 - Low back pain, unspecified Patient Disposition: Home Condition: Stable Instructions: Antibiotic Form, Kidney Infection (ED) Additional Instructions: We will send a urine culture off to the lab; if the culture identifies an organism that the prescribed antibiotic will not treat, you will receive a phone call from an urgent care staff member and an appropriate antibiotic will be prescribed. -Also recommend: drink more fluid. It might help flush out germs, and it does no harm -Tylenol/ibuprofen prn for pain or fever -Follow-up with your primary care provider for urine recheck or seek ER visit if condition worsens with high fever, nausea, vomiting and severe back pain. Patient Language: Belarusian Prescriptions: New cephalexin 500 mg capsule 500 mg PO Q12H 3 Days Qty: 6 0RF No Action cetirizine 10 mg tablet fluticasone propionate 50 mcg/actuation spray,suspension INTRANASAL Follow-up/Referrals: Issac,MD Basim [Primary Care Provider] - Time of Disposition: 12:28
[2024-07-24 12:17] LABS: EDUAAPPEAR Cloudy; EDUABILI Negative (Negative); EDUABLOOD Negative (Negative); EDUACOLOR1 Dark; EDUAGLUCOSE Negative (Negative); EDUAKETONE Negative (Negative); EDUALEUKO 1+ (Negative); EDUANITRATE Negative (Negative); EDUAPH 6.5; EDUAPROTEIN Negative (Negative); EDUAUROBILI 0.2
== END 2024-07-24 12:30 | disposition home or self-care (01) ==
PROVIDERS: Emergency Provider Nurse Practitioner Family; PCP Family Medicine
DX: O99.891 Other specified diseases and conditions complicating pregnancy (principal); Z3A.01 Less than 8 weeks gestation of pregnancy; M54.50 Low back pain, unspecified; O99.331 Smoking (tobacco) complicating pregnancy, first trimester; F17.210 Nicotine dependence, cigarettes, uncomplicated
CPT/HCPCS: 81003; 87086; 99213; G0463

== ENCOUNTER 2024-10-13 20:33 | Emergency (ER) | payer OTHER, SELFPAY ==
--- OUTSIDE RECORDS SUMMARY | 2024-10-13 20:35 | XMS_ITS | Clinical Summary ---
Author Organization [facility] Address [address] [place] [id number] Care Team Providers Care Wet Process Technician Name Role Phone Trish Whitehead MD Primary Care Provider [phone] Social History Tobacco Use Types Packs/Day Years [...] of 3 - 19+ 3-dose series) 2004 HPV Vaccines (1 - 3-dose SCD M series) 2012 Cervical Cancer Screening Pa p with HPV Testing (Age 30 to 64) Every 5 Years 2015 Cervical Cancer Screening with HPV 2015 COVID-19 Vaccine (2023-2 5 season) 2023 Meningococcal B Vaccine Aged Out No l [...] age to complete this topic Care Teams Wet Process Technician Relationship Specialty Start Date End Date Trish Whitehead MD PCP - General 04/11/11
[2024-10-13 21:09] VITALS: BP 123/67; PULSE 87; RESP 16; TEMP 36.8; O2SAT 100
[2024-10-13 21:29] LABS: Hematocrit 32.9 % (37.0-47.0); Hemoglobin 11.1 g/dL (12.0-15.0); Immature Granulocyte Percent A 0.7 % (0-0.5); Lymphocytes Absolute Auto 2.75 K/mm3 (0.9-3.2); Mean Corpuscular HGB Conc 33.7 g/dl (32-36); Mean Corpuscular Hemoglobin 31.3 pg (26-34); Mean Corpuscular Volume 92.7 fl (80-100); Nucleated Red Blood Cells Absolute Auto 0.000 K/mm3 (0.0-0.012); Nucleated Red Blood Cells Perc 0.0 % (0.0-0.2); Platelet Count Result 269 k/mm3 (150-375); Red Blood Count 3.55 M/mm3 (4.2-5.4); White Blood Count 17.5 K/mm3 (4.5-10.0)
[2024-10-13 21:33] LABS: Add Urine Microscopic? YES; Appearance Urine Clear (Clear); Glucose Urine UA Negative (Negative); Leukocyte Esterase Ur 2+ LEU/UL (Negative); Nitrate Urine Negative (Negative); Specific Grav Ur 1.005 (1.001-1.035)
[2024-10-13 21:49] LABS: Alanine Aminotransferase 15 U/L (6-35); Albumin Level 3.9 g/dL (3.5-5.1); Alkaline Phosphatase 99 U/L (38-126); Anion Gap 8 mmol/L (4-12); Aspartate Amino Transferase 17 U/L (14-36); Bilirubin,Total 0.9 mg/dL (0.2-1.3); Blood Urea Nitrogen 4 mg/dL (7-17); Calcium 8.8 mg/dL (8.4-10.2); Carbon Dioxide 20 mmol/L (22-30); Chloride 104 mmol/L (98-107); Estimated Glomerular Filt Rate > 60; Glucose 128 mg/dL (65-110); Lipase 28 U/L (23-300); Potassium 3.6 mmol/L (3.4-5.0); Sodium 132 mmol/L (137-145); Total Protein 7.3 g/dL (6.3-8.2)
--- OUTSIDE RECORDS SUMMARY | 2024-10-13 23:46 | XMS_ITS | Clinical Summary ---
Author Organization [facility] Address [address] [place] [address] Care Team Providers Care Shoe Cobbler Name Role Phone Trish Whitehead MD Primary Care Provider [phone] Social History Tobacco Use Types Packs/Day Years [...] age to complete this topic Care Teams Shoe Cobbler Relationship Specialty Start Date End Date Trish Whitehead MD PCP - General 04/11/11
--- NOTE | 2024-10-14 00:24 | PC.NURSE ---
Pt presented to ED for abdominal pain. Pt 19 weeks per BLAIR given by pt. heart tones doppled at 160. [place] applied and displayed uterine irritability, but no palpable contractions were noted during assessment. Monitor findings and assessment reported to ED RN.
[2024-10-14] MEDS: ACETAMINOPHEN 500 MG TABLET 1000 MG PO (00:37)
[2024-10-14] MEDS: SODIUM CHLORIDE 0.9% IV 1,000 ML 999 ML IV CONT (00:37)
--- NOTE | 2024-10-14 02:06 | ED_ITS ---
HPI - Abdominal Pain General Chief Complaint: Abdominal Pain Stated Complaint: abd pain / 5 mths preg Time Seen by Provider: 10/13/24 23:32 History of Present Illness HPI narrative: Patient is a 39-year-old female who presents to the ER with complaints of abdominal pain while . She reports she is 21 weeks and started experiencing left lower quadrant abdominal pain earlier today. Patient reports she went to her OBGYN burn appointment. She reports it has been ?approximately 6 days since I pooped so patient reports her OBGYN gave her Linzess. Patient reports she has not had a bowel movement yet since taking the medication. She denies any urinary symptoms, nausea, or recent fevers. Patient endorses a medical history of fibroids, but denies any other relevant medical history. Related Data Home Medications ?Medication ?Instructions ?Recorded ?Confirmed ?Last Taken ?Type cetirizine 10 mg tablet mg 07/24/24 Unknown History fluticasone propionate 50 intranasal 07/24/24 Unknown History mcg/actuation nasal spray,suspension Allergies Allergy/AdvReac Type Severity Reaction Status Date / Time vancomycin AdvReac Mild Itching Verified 07/24/24 11:53 Review of Systems 2 Review of Systems: All systems reviewed & are unremarkable except as noted in HPI and below PMFSH Past Medical History Medical History Anxiety PTSD (post-traumatic stress disorder) Gestational diabetes Foot infection Inguinal hernia Surgical History Surgical History H/O inguinal hernia repair H/O oral surgery Social History Social History Smoking packs per day: 1 Smoking cigarettes per day: 20.0 Years smoked: 20 Smoking pack-years: 20.00 Smoking status: Current every day smoker Tobacco type: cigarettes Alcohol intake: current Drinks per week: 6 Alcohol use details: 4 drinks/day Substance use: never Substance use type: does not use Living arrangements: with family Spiritual care concerns: No Exam 2 Narrative: GENERAL: Ill appearing, well-nourished, non-toxic, in acute distress due to pain. HEAD: Normocephalic, atraumatic. NECK: Supple. No adenopathy, no masses. RESPIRATORY: Airway patent, respirations nonlabored. Clear to auscultation bilaterally, no rales, rhonchi, wheezing. CARDIOVASCULAR: Regular rate and rhythm without murmurs, rubs, or gallops. Peripheral pulses 2+ and equal bilaterally. ABDOMINAL: Soft, nontender, nondistended, no hepatosplenomegaly. Normoactive BS. MUSCULOSKELETAL: Moves all extremities. Strength/ROM intact without gross deformities. SKIN: Warm, dry, normal color. No rashes. NEURO: A&O X3. Speech clear. Cranial nerves II-XII intact. No ataxic movements. PSYCHIATRIC: Appropriate mood and affect. Normal interaction. Course Vital Signs Vital signs: Vital Signs Temperature 36.8 C 10/13/24 21:09 Pulse Rate 87 10/13/24 21:09 Respiratory Rate 16 10/13/24 21:09 Blood Pressure 123/67 10/13/24 21:09 Pulse Oximetry 100 10/13/24 21:09 Oxygen Delivery Room Air 10/13/24 21:09 Temperature 36.8 C 10/13/24 21:09 Pulse Rate 87 10/13/24 21:09 Respiratory Rate 16 10/13/24 21:09 Blood Pressure 123/67 10/13/24 21:09 Pulse Oximetry 100 10/13/24 21:09 Oxygen Delivery Room Air 10/13/24 21:09 MDM - Abdominal Pain MDM Narrative Medical decision making narrative: Patient is a 39-year-old female who presents to the ER with complaints of abdominal pain while . She reports she is 21 weeks and started experiencing left lower quadrant abdominal pain earlier today. Patient reports she went to her OBGYN burn appointment. She reports it has been ?approximately 6 days since I pooped so patient reports her OBGYN gave her Linzess. Patient reports she has not had a bowel movement yet since taking the medication. She denies any urinary symptoms, nausea, or recent fevers. Patient endorses a medical history of fibroids, but denies any other relevant medical history. Labs Ordered: CBC, CMP, UA, lipase Imaging Ordered: Ultrasound stress test (30 minutes) Medications Ordered: 1 L normal saline IV bolus, Tylenol p.o., Keflex 500 mg p.o. Results: Patient's white blood cell count was 17.5. Her red blood cell count was 3.55, hemoglobin 11.1, hematocrit 32.9%. Patient's sodium was 132, carbon dioxide of 20, BUN of 4, and creatinine is 0.52. Her lipase was within normal limits. Patient's urinalysis indicates she has a urinary tract infection. Her ultrasound stress tests did not indicate any uterine contractions and she had good movement. Diagnosis: Dehydration, urinary tract infection, constipation Consults: OBGYN (Dr. Nav Charles), outpatient. Patient reports she has an ultrasound and OB appointment scheduled for tomorrow. Patient Education/Shared MDM: Results of lab work shared with patient. Her results, with exception of her white blood cell count, were consistent with previous lab work patient has had done. She endorses significant improvement of symptoms following Tylenol medication administration. Patient strongly advised to maintain hydration status upon discharge and follow-up with her OBGYN tomorrow as planned. She will be discharged home with a prescription for Keflex. Strict return precautions provided. Patient verbalized understanding and is in agreement with plan. Vital signs stable at time of discharge. All questions answered. Differential Diagnosis Differential diagnosis: Likely abdominal pain and other (Urinary tract infection, constipation) Lab Data Attestation: I reviewed the patient's lab results. 10/13/24 21:24 10/13/24 21:24 Labs: Lab Results 10/13/24 Range/Units 21:24 WBC 17.5 H (4.5-10.0) K/mm3 RBC 3.55 L (4.2-5.4) M/mm3 Hgb 11.1 L (12.0-15.0) g/dL Hct 32.9 L (37.0-47.0) % MCV 92.7 (80-100) fl MCH 31.3 (26-34) pg MCHC 33.7 (32-36) g/dl RDW 14.5 (11.5-14.5) % Plt Count 269 (150-375) k/mm3 MPV 9.5 (7.4-10.4) fl Immature Gran % (Auto) 0.7 H (0-0.5) % Neut % (Auto) 78.5 H (45.5-73.1) % Lymph % (Auto) 15.7 L (18.3-44.2) % [place] % (Auto) 3.9 (2.6-8.5) % Eos % (Auto) 0.9 (0-4.4) % Baso % (Auto) 0.3 (0.2-1.2) % Lymph # (Auto) 2.75 (0.9-3.2) K/mm3 [place] # (Auto) 0.7 H (0.1-0.6) K/mm3 Eos # (Auto) 0.2 (0-0.3) K/mm3 Baso # (Auto) 0.1 (0.0-0.1) K/mm3 Abs Immat Gran (auto) 0.13 H (0.00-0.031) K/mm3 Absolute Neuts (auto) 13.7 H (1.3-6.7) K/mm3 Absolute Nucleated RBC 0.000 (0.0-0.012) K/mm3 Nucleated RBC % 0.0 (0.0-0.2) % Sodium 132 L (137-145) mmol/L Potassium 3.6 (3.4-5.0) mmol/L Chloride 104 (98-107) mmol/L Carbon Dioxide 20 L (22-30) mmol/L Anion Gap 8 (4-12) mmol/L BUN 4 L D (7-17) mg/dL Creatinine 0.52 L (0.7-1.0) mg/dL Estim Creat Clear Calc Not Reportable Estimated GFR > 60 (59 - ) Glucose 128 H (65-110) mg/dL Calcium 8.8 (8.4-10.2) mg/dL Total Bilirubin 0.9 (0.2-1.3) mg/dL AST 17 (14-36) U/L ALT 15 (6-35) U/L Alkaline Phosphatase 99 (38-126) U/L Total Protein 7.3 (6.3-8.2) g/dL Albumin 3.9 (3.5-5.1) g/dL Lipase 28 (23-300) U/L Urine Color Yellow (Yellow) Urine Appearance Clear (Clear) Urine pH 7.0 (5.0-9.0) Ur Specific [place] 1.005 (1.001-1.035) Urine Protein Negative (Negative) mg/dL Urine Glucose (UA) Negative (Negative) mg/dL Urine Ketones 1+ H (Negative) mg/dL Ur Blood (Man) Negative (Negative) Urine Nitrate Negative (Negative) Urine Bilirubin Negative (Negative) Urine Urobilinogen 0.2 (<2.0) mg/dL Leukocyte Esterase Rfl 2+ H (Negative) LAURY/UL Urine RBC 0-2 (0-2) /hpf Urine WBC 11-20 H (0-3) /hpf Ur Squamous Epith Cells Few (Few) /hpf Urine Bacteria 1+ H /hpf Urine Casts 3-5 Discharge Plan Discharge Clinical Impression: Urinary tract infection, Dehydration, mild, Constipation Patient Disposition: Home Condition: Stable Instructions: Antibiotic Form, Constipation (ED), Urinary Tract Infection in Women (ED) Additional Instructions: Please return to the ER with any worsening symptoms. Follow-up with your OBGYN tomorrow as planned. Please complete your full dose of antibiotics. Drink lots of water. Patient Language: Mongolian Prescriptions: New Linzess 72 mcg capsule 72 mcg PO DAILY Qty: 1 0RF No Action cetirizine 10 mg tablet fluticasone propionate 50 mcg/actuation spray,suspension INTRANASAL cephalexin 500 mg capsule 500 mg PO Q12H 3 Days Qty: 6 0RF Follow-up/Referrals: Esteban Ley MD [Physician] - (OBGYNArmando Davenport,MD Basim [Primary Care Provider] - Stand Alone Forms: Work/School Release IP Time of Disposition: 02:15
[2024-10-14] MEDS: CEPHALEXIN 500 MG CAPSULE PO (02:17)
== END 2024-10-14 02:27 | disposition home or self-care (01) ==
PROVIDERS: Student in an Organized Health Care Education/Training Program; Emergency Provider Registered Nurse; PCP Family Medicine
DX: O23.42 Unspecified infection of urinary tract in pregnancy, second trimester (principal); N39.0 Urinary tract infection, site not specified; Z3A.21 21 weeks gestation of pregnancy; O99.332 Smoking (tobacco) complicating pregnancy, second trimester; E86.0 Dehydration; K59.00 Constipation, unspecified
CPT/HCPCS: 36415; 80053; 81001; 83690; 85025; 87086; 96360; 99283; A9270; J7030

== ENCOUNTER 2025-01-06 14:15 | Outpatient (RCR) | payer OTHER, SELFPAY ==
--- NOTE | 2024-12-29 09:17 | PCDIET ---
12/29/24: MNT consult Completed and note faxed to referring provider.
== END 2025-03-07 12:46 | disposition home or self-care (01) ==
LOC: ANHDMC 14:15
PROVIDERS: PCP Family Medicine; Visit Provider Obstetrics & Gynecology
DX: O24.319 Unspecified pre-existing diabetes mellitus in pregnancy, unspecified trimester (principal); Z3A.00 Weeks of gestation of pregnancy not specified; Z71.89 Other specified counseling; Z71.3 Dietary counseling and surveillance
CPT/HCPCS: 97802; G0108

== ENCOUNTER 2025-02-15 10:41 | Emergency (ER) | payer OTHER, SELFPAY ==
[2025-02-15 10:50] VITALS: BP 145/83; PULSE 82; RESP 24; TEMP 36.2; O2SAT 99
--- NOTE | 2025-02-15 10:54 | ED_ITS ---
HPI - Skin/Abscess/Foreign Bdy General Stated complaint: abscess Source: patient and RN notes reviewed Mode of arrival: ambulatory Limitations: no limitations History of Present Illness HPI narrative: Patient is a 39-year-old female who presents to the [facility] with complaints abscess just below her right breast. She states that she initially had what appeared to be a red raised area for the last couple days. She states that last night the pain intensified. She reports frequent abscesses requiring antibiotics. Patient is currently in her 3rd trimester . She denies any related complaints. Denies recent fevers. Related Data Home Medications ?Medication ?Instructions ?Recorded ?Confirmed ?Last Taken ?Type insulin human U-100 NPH-regulr 15 unit subcut BID 08/0102/01/25 02/01/25 History 70-30 mix 100 unit/mL subcutaneous susp (Humulin 70/30 U-100 Insulin) nifedipine 10 mg capsule 10 mg PO Q8H 01/12/2502/01/25 History vit no.95-ferrous 1 tablet PO DAILY 01/12/25 02/01/25 02/01/25 History fumarate 28 mg-folic acid 800 mcg tablet () Allergies Allergy/AdvReac Type Severity Reaction Status Date / Time vancomycin AdvReac Mild Itching Verified 02/01/25 14:51 Review of Systems Review of Systems: CONSTITUTIONAL: Denies fever, chills, or sweats. EYES: Denies visual changes, redness, or discharge. ENT: Denies otalgia and sore throat CARDIOVASCULAR: Denies chest pain, palpitations, or edema. RESPIRATORY: Denies cough or dyspnea. GASTROINTESTINAL: Denies abdominal pain, nausea, vomiting, or diarrhea. GENITOURINARY: Denies dysuria or hematuria. SKIN: Reports abscess to right breast. MUSCULOSKELETAL: Denies back pain, joint pain, or myalgia. NEUROLOGIC: Denies headache, numbness, or weakness. Pertinent positives per HPI. [facility] Past Medical History Medical History Anxiety PTSD (post-traumatic stress disorder) Gestational diabetes Foot infection Inguinal hernia Surgical History Surgical History H/O inguinal hernia repair H/O oral surgery Family History Family History Other Cervical cancer Uterine cancer Social History Social History Smoking packs per day: 1 Smoking cigarettes per day: 20.0 Years smoked: 20 Smoking pack-years: 20.00 Smoking status: Current every day smoker Tobacco type: cigarettes Alcohol intake: current Drinks per week: 6 Alcohol use details: 4 drinks/day Substance use: never Substance use type: does not use Living arrangements: with family Spiritual care concerns: No Comments At the time of my signature, I reviewed and agree with the nursing past medical, surgical, social, and family history. There is no relevant family history pertinent to the patient complaint. Exam Narrative: GENERAL: This is a well-nourished, well-developed patient, in no apparent distress. HEAD: normocephalic, atraumatic. EYES: Sclera clear/white. Vision is grossly intact. EARS: External ears normal. Hearing grossly intact. NOSE: External nose normal with no obvious nasal discharge, nares without redness, no rhinorrhea. THROAT: Mucous membranes moist. NECK: Neck supple, non-tender without lymphadenopathy, masses or thyromegaly. CARDIOVASCULAR: Regular rate and rhythm without murmurs, gallops, or rubs. RESPIRATORY: Clear to auscultation. Breath sounds equal bilaterally. No wheezes, rales, or rhonchi. GASTROINTESTINAL: Abdomen soft, non-tender, nondistended. Bowel sounds are active. No hepato-splenomegaly, or palpable masses. No guarding. SKIN: 2 x 2 cm of erythema and induration just below the right breast. No drainage. + tenderness. NEURO: awake, alert, and oriented to person, place and time. There were no obvious focal neurologic abnormalities. Course Course Level of Care: Express Care Visit Vital Signs Vital signs: Vital Signs Temperature 97.2 F L 02/15/25 10:50 Pulse Rate 82 02/15/25 10:50 Respiratory Rate 24 H 02/15/25 10:50 Blood Pressure 145/83 H 02/15/25 10:50 Pulse Oximetry 99 02/15/25 10:50 Oxygen Delivery Room Air 02/15/25 10:50 Temperature 97.2 F L 02/15/25 10:50 Pulse Rate 82 02/15/25 10:50 Respiratory Rate 24 H 02/15/25 10:50 Blood Pressure 145/83 H 02/15/25 10:50 Pulse Oximetry 99 02/15/25 10:50 Oxygen Delivery Room Air 02/15/25 10:50 Reviewed MDM MDM Narrative Medical decision making narrative: Patient denied incision and drainage. States that she would like to avoid I&D and try antibiotics first. DO NOT pick at the area. This will only make the area worse and drive infection deeper. Shower and wash with soapy water. Keep area clean and dry. Take all the antibiotics as prescribed. Make sure to keep a dressing in place especially while it is draining Follow up with PCP in 7-10 days Return to Urgent care or go to the ER for worsened condition or Symptoms Differential Diagnosis Differential Diagnosis: abscess, cellulitis, wound infection Critical Care Time Critical Care Time Critical Care Time: No Discharge Plan Discharge Clinical Impression: Abscess of right breast Patient Disposition: Home Condition: Stable Instructions: Antibiotic Form, Abscess (ED) Additional Instructions: DO NOT pick at the area. This will only make the area worse and drive infection deeper. Shower and wash with soapy water. Keep area clean and dry. Take all the antibiotics as prescribed. Make sure to keep a dressing in place especially while it is draining Follow up with PCP in 7-10 days Return to Urgent care or go to the ER for worsened condition or Symptoms Patient Language: Greek Prescriptions: New cephalexin 500 mg capsule 500 mg PO Q8H 10 Days Qty: 30 0RF No Action Humulin 70/30 U-100 Insulin 100 unit/mL (70-30) suspension 15 unit subcut BID Patient Comments: Pt takes at 0400 and 1600 nifedipine 10 mg capsule 10 mg PO Q8H PNV no.95-ferrous fumarate-FA [] 28 mg iron- 800 mcg tablet 1 tablet PO DAILY hydrocodone-acetaminophen 5-325 mg tablet 1 tablet PO Q8H PRN (Reason: pain) Qty: 20 0RF Follow-up/Referrals: Issac,MD Basim [Primary Care Provider, Unknown] Stand Alone Forms: Work/School Release IP Time of Disposition: 11:03
== END 2025-02-15 11:25 | disposition home or self-care (01) ==
PROVIDERS: Emergency Provider Nurse Practitioner; PCP Family Medicine
DX: O91.113 Abscess of breast associated with pregnancy, third trimester (principal); O99.333 Smoking (tobacco) complicating pregnancy, third trimester; F17.210 Nicotine dependence, cigarettes, uncomplicated; Z3A.00 Weeks of gestation of pregnancy not specified
CPT/HCPCS: 99213; G0463

== ENCOUNTER 2025-02-22 13:55 | Outpatient (RCR) | payer OTHER, SELFPAY ==
[2025-01-12 15:42] VITALS: BP 124/69; PULSE 78
[2025-01-18 15:09] VITALS: BP 113/62; PULSE 78
[2025-01-26 15:07] VITALS: BP 132/73; PULSE 77
[2025-02-01 18:19] VITALS: BP 119/70; PULSE 76
[2025-02-08 14:33] VITALS: BP 127/84; PULSE 76
[2025-02-15 15:45] VITALS: BP 138/71; PULSE 70
[2025-02-22 14:29] VITALS: BP 139/78; PULSE 70
== END 2025-03-04 17:44 | disposition other institution (70) ==
LOC: ANHOBOP 13:55
PROVIDERS: PCP Family Medicine; Visit Provider Obstetrics & Gynecology
DX: O24.419 Gestational diabetes mellitus in pregnancy, unspecified control (principal); Z3A.32 32 weeks gestation of pregnancy
CPT/HCPCS: 59025; A9270

== ENCOUNTER 2025-02-27 14:41 | Inpatient (IN) | payer OTHER, SELFPAY ==
[2025-02-27] VITALS (154 sets, daily range): BP systolic 70–167; BP diastolic 41–117; PULSE 30–171; TEMP 36.6–37.1; O2SAT 89–100; BMI 35.4
[2025-02-27 15:03] LABS: Hematocrit 37.8 % (37.0-47.0); Hemoglobin 12.8 g/dL (12.0-15.0); Immature Granulocyte Percent A 1.0 % (0-0.5); Lymphocytes Absolute Auto 3.33 K/mm3 (0.9-3.2); Mean Corpuscular HGB Conc 33.9 g/dl (32-36); Mean Corpuscular Hemoglobin 32.0 pg (26-34); Mean Corpuscular Volume 94.5 fl (80-100); Nucleated Red Blood Cells Absolute Auto 0.020 K/mm3 (0.0-0.012); Nucleated Red Blood Cells Perc 0.1 % (0.0-0.2); Platelet Count Result 304 k/mm3 (150-375); Red Blood Count 4.00 M/mm3 (4.2-5.4); White Blood Count 13.5 K/mm3 (4.5-10.0)
--- NOTE | 2025-02-27 15:04 | LDADM ---
This patient, Jenny Fernandez, was admitted to Labor/Delivery/Recovery 106 on 02/27/25 at 14:41. Plans for labor, pain management and were discussed with patient. Patient/family oriented to hospital policies and general routines including ID bracelet, bed and alarms, visiting hours, pain management, procedures, bathroom and other care routines, personal items, smoking policy, room service/diet and guest tray routines, infant security routines, and visiting hours. Patient/Family are encouraged to report perceived risks to care and to ask questions if they do not understand what they are told or what they should do. See [facility]BIX for further documentation.
[2025-02-27 15:18] LABS: Alanine Aminotransferase 19 U/L (6-35); Albumin Level 4.0 g/dL (3.5-5.1); Alkaline Phosphatase 167 U/L (38-126); Anion Gap 9 mmol/L (4-12); Aspartate Amino Transferase 22 U/L (14-36); Bilirubin,Total 0.7 mg/dL (0.2-1.3); Blood Urea Nitrogen 10 mg/dL (7-17); Calcium 9.6 mg/dL (8.4-10.2); Carbon Dioxide 20 mmol/L (22-30); Chloride 106 mmol/L (98-107); Estimated CRCL calculation 117 ml/min; Estimated Glomerular Filt Rate > 60; Glucose 90 mg/dL (65-110); Potassium 3.7 mmol/L (3.4-5.0); Sodium 135 mmol/L (137-145); Total Protein 8.0 g/dL (6.3-8.2)
[2025-02-27 15:45] LABS: Syphilis IgG/IgM Antibody Non-Reactive (Nonreactive)
--- NOTE | 2025-02-27 16:14 | P.HP_ITS ---
H&P: HPI History of Present Illness Date/Time: 02/27/25 16:14 Chief Complaint: Medical induction of labor a gestational diabetic Narrative: This is 39-year-old 5 para 4 whose last menstrual period was 05/31/2024, EDC is 01/05/2025, confirmed by 10 week ultrasound who presents at 39 weeks gestation for induction of. She is gestational diabetic and has been using insulin. Her sugars have been well controlled in her last ultrasound showed the baby in about the 50th percentile she is negative for group B strep Review of Systems Review of Systems: CONSTITUTIONAL: Denies fever, chills, or sweats. EYES: Denies visual changes, redness, or discharge. ENT: Denies otalgia and sore throat CARDIOVASCULAR: Denies chest pain, palpitations, or edema. RESPIRATORY: Denies cough or dyspnea. GASTROINTESTINAL: Denies abdominal pain, nausea, vomiting, or diarrhea. GENITOURINARY: Denies dysuria or hematuria. SKIN: Reports abscess to right breast. MUSCULOSKELETAL: Denies back pain, joint pain, or myalgia. NEUROLOGIC: Denies headache, numbness, or weakness. Pertinent positives per HPI. [facility] Past Medical History Medical History Anxiety PTSD (post-traumatic stress disorder) Gestational diabetes Foot infection Inguinal hernia Surgical History Surgical History H/O inguinal hernia repair H/O oral surgery Family History Family History Other Cervical cancer Uterine cancer Social History Social History Smoking packs per day: 1 Smoking cigarettes per day: 20.0 Years smoked: 20 Smoking pack-years: 20.00 Smoking status: Current every day smoker Tobacco type: cigarettes Second hand tobacco smoke exposure: Yes Alcohol intake: current Drinks per week: 6 Alcohol use details: 4 drinks/day Substance use: never Substance use type: does not use Lack of Transportation: No Lack of Food: Never True Current Housing: I Have Housing Concerned About Future Housing: No Difficulty Paying Gas/Electric Bills: No Difficulty Paying for Meds: No Currently Unemployed: No Education: Associate Degree Difficulty w/ Childcare or Family Care: No Living arrangements: with family Spiritual care concerns: No Meds Home Medications and Allergies Home Medications ?Medication ?Instructions ?Recorded ?Confirmed ?Type insulin human U-100 NPH-regulr 15 unit subcut BID 08/0102/27/25 History 70-30 mix 100 unit/mL subcutaneous susp (Humulin 70/30 U-100 Insulin) vit no.95-ferrous 1 tablet PO DAILY 01/12/25 02/27/25 History fumarate 28 mg-folic acid 800 mcg tablet () Allergies Allergy/AdvReac Type Severity Reaction Status Date / Time vancomycin AdvReac Mild Itching Verified 02/27/25 15:04 Vital Signs Vital Signs - 24 hr 02/27/25 14:52 02/27/25 15:04 02/27/25 15:19 Temperature 98.4 F Pulse Rate Blood Pressure Pulse Oximetry 98 Oxygen Delivery Room Air 02/27/25 15:22 02/27/25 15:24 02/27/25 15:29 Temperature Pulse Rate 76 Blood Pressure 160/94 H Pulse Oximetry 99 100 Oxygen Delivery 02/27/25 15:31 02/27/25 15:34 02/27/25 15:39 Temperature Pulse Rate 74 Blood Pressure 155/92 H Pulse Oximetry 100 99 Oxygen Delivery 02/27/25 15:45 02/27/25 15:50 02/27/25 15:55 Temperature Pulse Rate Blood Pressure Pulse Oximetry 99 100 100 Oxygen Delivery 02/27/25 16:00 02/27/25 16:01 02/27/25 16:05 Temperature Pulse Rate 78 Blood Pressure 159/90 H Pulse Oximetry 100 100 Oxygen Delivery 02/27/25 16:10 Temperature Pulse Rate Blood Pressure Pulse Oximetry 100 Oxygen Delivery Exam Const: General: cooperative, healthy appearing and comfortable Nutritional Appearance: overweight Orientation/consciousness: oriented to person, oriented to place and oriented to time Resp: Effort & Inspection: normal respiratory effort Cardio: Rate: regular rate Rhythm: regular rhythm Heart sounds: S1 normal heart sound present and S2 normal heart sound present GI: Inspection: normal to inspection (Gravid soft uterus) : External Female Exam: normal external appearance Speculum Exam - Vagina: normal appearance of the vagina Speculum Exam - Cervix: normal appearance of the cervix (Cervix 3 to 4/70 5/-2. Few variable seen. Will attempt a round) Results Labs Labs: Short CBC 02/27/25 Range/Units 14:58 WBC 13.5 H (4.5-10.0) K/mm3 Hgb 12.8 (12.0-15.0) g/dL Hct 37.8 (37.0-47.0) % Plt Count 304 (150-375) k/mm3 BMP 02/27/25 14:58 Sodium 135 L Potassium 3.7 Chloride 106 Carbon Dioxide 20 L BUN 10 D Creatinine 0.56 L Glucose 90 Calcium 9.6 Liver Function 02/27/25 Range/Units 14:58 Total Bilirubin 0.7 (0.2-1.3) mg/dL AST 22 (14-36) U/L ALT 19 (6-35) U/L Alkaline Phosphatase 167 H (38-126) U/L Albumin 4.0 (3.5-5.1) g/dL Assessment and Plan Assessment and plan (1) Term : Code(s): Z34.90 - Encounter for supervision of normal , unspecified, unspecified trimester Status: Acute Plan Will check serial blood sugars. Spontaneous vaginal is expected. She is an epidural candidate
[2025-02-27 16:17] LABS: Cannabinoid Screen Urine Negative (Negative)
[2025-02-27] MEDS: LACTATED RINGERS 1,000 ML 125 ML IV CONT (16:23)
--- NOTE | 2025-02-27 17:21 | WPDANESEPP ---
Anes - Eval Pre Procedure Procedure: Operation Date: 02/28/25 12:00 Proposed Procedures p Section - Esteban Charles MD Date/Time: 02/27/25 17:21 Surgeon: Jasbir Preop Diagnosis: Labor Pain Pre Op Diagnosis: IOL Patient Data Age: 39 Gender: F Height: 1.57 m Weight: 88 kg Last Vital Signs Temp 36.9 C 02/27/25 14:52 Pulse 80 02/27/25 17:15 BP 152/81 H 02/27/25 17:15 Pulse Ox 100 02/27/25 17:19 O2 Del Method Room Air 02/27/25 15:04 Allergies Allergy/AdvReac Type Severity Reaction Status Date / Time vancomycin AdvReac Mild Itching Verified 02/27/25 15:04 Home Medications ?Medication ?Instructions ?Recorded ?Confirmed ?Type insulin human U-100 NPH-regulr 15 unit subcut BID 01/12/25 02/27/25 History 70-30 mix 100 unit/mL subcutaneous susp (Humulin 70/30 U-100 Insulin) vit no.95-ferrous 1 tablet PO DAILY 01/12/25 02/27/25 History fumarate 28 mg-folic acid 800 mcg tablet () Laboratory Tests 02/27/25 02/27/25 14:58 15:52 WBC 13.5 H K/mm3 (4.5-10.0) RBC 4.00 L M/mm3 (4.2-5.4) Hgb 12.8 g/dL (12.0-15.0) Hct 37.8 % (37.0-47.0) MCV 94.5 fl (80-100) MCH 32.0 pg (26-34) MCHC 33.9 g/dl (32-36) RDW 12.9 % (11.5-14.5) Plt Count 304 k/mm3 (150-375) MPV 9.9 fl (7.4-10.4) Immature Gran % (Auto) 1.0 H % (0-0.5) Neut % (Auto) 69.4 % (45.5-73.1) Lymph % (Auto) 24.6 % (18.3-44.2) [place] % (Auto) 3.7 % (2.6-8.5) Eos % (Auto) 0.9 % (0-4.4) Baso % (Auto) 0.4 % (0.2-1.2) Lymph # (Auto) 3.33 H K/mm3 (0.9-3.2) [place] # (Auto) 0.5 K/mm3 (0.1-0.6) Eos # (Auto) 0.1 K/mm3 (0-0.3) Baso # (Auto) 0.1 K/mm3 (0.0-0.1) Abs Immat Gran (auto) 0.13 H K/mm3 (0.00-0.031) Absolute Neuts (auto) 9.4 H K/mm3 (1.3-6.7) Absolute Nucleated RBC 0.020 H K/mm3 (0.0-0.012) Nucleated RBC % 0.1 % (0.0-0.2) Sodium 135 L mmol/L (137-145) Potassium 3.7 mmol/L (3.4-5.0) Chloride 106 mmol/L (98-107) Carbon Dioxide 20 L mmol/L (22-30) Anion Gap 9 mmol/L (4-12) BUN 10 D mg/dL (7-17) Creatinine 0.56 L mg/dL (0.7-1.0) Estim Creat Clear Calc 117 ml/min Estimated GFR > 60 (59 - ) Glucose 90 mg/dL (65-110) Calcium 9.6 mg/dL (8.4-10.2) Total Bilirubin 0.7 mg/dL (0.2-1.3) AST 22 U/L (14-36) ALT 19 U/L (6-35) Alkaline Phosphatase 167 H U/L (38-126) Total Protein 8.0 g/dL (6.3-8.2) Albumin 4.0 g/dL (3.5-5.1) Urine Opiates Screen Negative (Negative) Urine Methadone Screen Negative (Negative) Ur Barbiturates Screen Negative (Negative) Ur Phencyclidine Scrn Negative (Negative) Ur Amphetamine Screen Negative (Negative) U Benzodiazepines Scrn Negative (Negative) Urine Cocaine Screen Negative (Negative) U Cannabinoids Screen Negative (Negative) Syphilis IgG/IgM Ab Non-reactive (Nonreactive) Blood Type A Positive Antibody Screen Negative : gestational age (LBAIR 03/07/25, ) Patient hx anesthesia problems: none Family hx anesthesia problems: none Results Review: All pre-operative results and documents have been reviewed as part of the pre-operative evaluation. [facility] Past Medical History Medical History Anxiety PTSD (post-traumatic stress disorder) Gestational diabetes Foot infection Inguinal hernia Surgical History Surgical History H/O inguinal hernia repair H/O oral surgery Family History Family History Other Cervical cancer Uterine cancer Social History Social History Smoking packs per day: 1 Smoking cigarettes per day: 20.0 Years smoked: 20 Smoking pack-years: 20.00 Smoking status: Current every day smoker Tobacco type: cigarettes Second hand tobacco smoke exposure: Yes Alcohol intake: current Drinks per week: 6 Alcohol use details: 4 drinks/day Substance use: never Substance use type: does not use Lack of Transportation: No Lack of Food: Never True Current Housing: I Have Housing Concerned About Future Housing: No Difficulty Paying Gas/Electric Bills: No Difficulty Paying for Meds: No Currently Unemployed: No Education: Associate Degree Difficulty w/ Childcare or Family Care: No Living arrangements: with family Spiritual care concerns: No Exam Day of Procedure 02/27/25 17:21 Patient weight: normal Heart: regular rate and rhythm Lungs: normal air movement Airway: Mallampati scale class II Neurological: alert and oriented
--- NOTE | 2025-02-27 17:23 | PM.OBPNLAB ---
Pain Control Date/time seen: 02/27/25 17:23 Pain control: tolerating well Comments: getting epidural. clear fluid presently
[2025-02-27] MEDS: INSULIN HUMAN REGULAR (*BKC) 100 UNITS/ML SUB-Q (18:14)
[2025-02-27] MEDS: INSULIN HUMAN REGULAR (*BKC) 100 UNITS/ML 7 UNITS SUB-Q (19:57)
[2025-02-27] MEDS: ONDANSETRON INJ 4 MG/2 ML VIAL IV PUSH (20:01)
[2025-02-27 22:10] LABS: Uric Acid 3.5 mg/dL (2.5-7.5)
[2025-02-28] VITALS (150 sets, daily range): BP systolic 91–177; BP diastolic 53–122; PULSE 25–141; RESP 16–18; TEMP 36.4–36.9; O2SAT 80–100
--- NOTE | 2025-02-28 06:28 | PM.OBPNLAB ---
Pain Control Date/time seen: 02/28/25 06:28 Pain control: tolerating well and epidural Pelvic Exam Dilation (cm): 7 Effacement (%): 100 station: -1 Amniotic membrane status: Leaking
[2025-02-28] MEDS: FAMOTIDINE 20 MG/2 ML VIAL IV PUSH (07:55)
--- NOTE | 2025-02-28 08:10 | PM.OBPRVD ---
OB - Vaginal Delivery Note Procedure Delivery date: 02/28/25 Events: Gestational Diabetes Induction method: AROM Delivery augmentation: Pitocin Delivery monitor: External FHT and External Uterine Route of delivery: Episiotomy description: None Laceration Description: Perineal - 1st Degree Delivery repair: vicryl Specimen: No Quantitative Blood Loss (ml): 63 Anesthesia type: Epidural Disposition: Floor Complications: No immediate complications Narrative: Patient was admitted for induction of labor on 02/27/2025 suppressor very slow 1st stage of labor to completely dilated when she was complete she pushed delivered head spontaneously in the BETTY position nuchal cord was noted to be tight clamped x2 cut and she immediately delivered the anterior posterior shoulder 22 Pitocin placed IV to help firm the uterus after the placenta delivered intact spontaneously a small midline first-degree tear was noted a [id number] 0 Vicryl placed QBL was 63cc. All sponge, needle, instrument counts were correct. There were no immediate complications noted [place] Baby Date of : 02/28/25 Time of : 08:02 Gestational Age by Date: 39 Infant gender: Female position: Right Occiput Anterior Placenta delivery description: Spontaneous Cord Vessel Description: 3 Vessels, Nuchal Cord and Clamped/Cut
--- NOTE | 2025-02-28 08:12 | P.DS_ITS ---
DS: Admitting Diagnosis Admitting Diagnosis Gestational diabetes/term DS: Discharge Diagnosis Discharge Diagnosis (1) Term : Code(s): Z34.90 - Encounter for supervision of normal , unspecified, unspecified trimester Status: Acute DS: Summary Hospital Course Reason for hospitalization: Patient was admitted on the afternoon of 02/27/2025 for induction of labor and underwent spontaneous vaginal delivery on 02/28/2025 in the early a.m. Hospital Course: Patient's hospital course unremarkable. She remained afebrile. She was up, voiding without difficulty eating ambulating, generally. Time Spent with Patient Time attestation: Total time spent providing and/or coordinating discharge services: Exam Const: General: cooperative, healthy appearing and comfortable Nutritional Appearance: overweight Orientation/consciousness: oriented to person, oriented to place and oriented to time Resp: Effort & Inspection: normal respiratory effort Cardio: Rate: regular rate Rhythm: regular rhythm Heart sounds: S1 normal heart sound present and S2 normal heart sound present GI: Inspection: normal to inspection (Gravid soft uterus) : External Female Exam: normal external appearance Speculum Exam - Vagina: normal appearance of the vagina Speculum Exam - Cervix: normal appe arance of the cervix (Cervix 3 to 4/70 5/-2. Few variable seen. Will attempt a round) DS: Data Data Completed and Pending Labs on day of discharge: Labs from last 24 hours 02/28/25 02/28/25 02/28/25 06:07 03:51 02:08 WBC RBC Hgb Hct MCV MCH MCHC RDW Plt Count MPV Immature Gran % (Auto) Neut % (Auto) Lymph % (Auto) [place] % (Auto) Eos % (Auto) Baso % (Auto) Lymph # (Auto) [place] # (Auto) Eos # (Auto) Baso # (Auto) Abs Immat Gran (auto) Absolute Neuts (auto) Absolute Nucleated RBC Nucleated RBC % Sodium Potassium Chloride Carbon Dioxide Anion Gap BUN Creatinine Estim Creat Clear Calc Estimated GFR Glucose POC Capillary Glucose 110 H 126 H 120 H Uric Acid Calcium Total Bilirubin AST ALT Alkaline Phosphatase Total Protein Albumin Urine Opiates Screen Urine Methadone Screen Ur Barbiturates Screen Ur Phencyclidine Scrn Ur Amphetamine Screen U Benzodiazepines Scrn Urine Cocaine Screen U Cannabinoids Screen Syphilis IgG/IgM Ab Blood Type Antibody Screen 02/27/25 02/27/25 02/27/25 23:55 22:27 19:33 WBC RBC Hgb Hct MCV MCH MCHC RDW Plt Count MPV Immature Gran % (Auto) Neut % (Auto) Lymph % (Auto) [place] % (Auto) Eos % (Auto) Baso % (Auto) Lymph # (Auto) [place] # (Auto) Eos # (Auto) Baso # (Auto) Abs Immat Gran (auto) Absolute Neuts (auto) Absolute Nucleated RBC Nucleated RBC % Sodium Potassium Chloride Carbon Dioxide Anion Gap BUN Creatinine Estim Creat Clear Calc Estimated GFR Glucose POC Capillary Glucose 158 H 143 H 192 H Uric Acid Calcium Total Bilirubin AST ALT Alkaline Phosphatase Total Protein Albumin Urine Opiates Screen Urine Methadone Screen Ur Barbiturates Screen Ur Phencyclidine Scrn Ur Amphetamine Screen U Benzodiazepines Scrn Urine Cocaine Screen U Cannabinoids Screen Syphilis IgG/IgM Ab Blood Type Antibody Screen 02/27/25 02/27/25 02/27/25 17:46 15:52 14:58 WBC 13.5 H RBC 4.00 L Hgb 12.8 Hct 37.8 MCV 94.5 MCH 32.0 MCHC 33.9 RDW 12.9 Plt Count 304 MPV 9.9 Immature Gran % (Auto) 1.0 H Neut % (Auto) 69.4 Lymph % (Auto) 24.6 [place] % (Auto) 3.7 Eos % (Auto) 0.9 Baso % (Auto) 0.4 Lymph # (Auto) 3.33 H [place] # (Auto) 0.5 Eos # (Auto) 0.1 Baso # (Auto) 0.1 Abs Immat Gran (auto) 0.13 H Absolute Neuts (auto) 9.4 H Absolute Nucleated RBC 0.020 H Nucleated RBC % 0.1 Sodium 135 L Potassium 3.7 Chloride 106 Carbon Dioxide 20 L Anion Gap 9 BUN 10 D Creatinine 0.56 L Estim Creat Clear Calc 117 Estimated GFR > 60 Glucose 90 POC Capillary Glucose 221 H Uric Acid 3.5 Calcium 9.6 Total Bilirubin 0.7 AST 22 ALT 19 Alkaline Phosphatase 167 H Total Protein 8.0 Albumin 4.0 Urine Opiates Screen Negative Urine Methadone Screen Negative Ur Barbiturates Screen Negative Ur Phencyclidine Scrn Negative Ur Amphetamine Screen Negative U Benzodiazepines Scrn Negative Urine Cocaine Screen Negative U Cannabinoids Screen Negative Syphilis IgG/IgM Ab Non-reactive Blood Type A Positive Antibody Screen Negative Discharge Plan Discharge Attending physician on discharge: Esteban Ley Discharging Clinician: Esteban Ley Patient Disposition: Home Activity: may shower, no straining and pelvic rest Diet: heart healthy Wound Care Instructions: follow printed instructions Patient Instructions: Antibiotic Form Patient Language: Greek Stand Alone Forms: General Discharge Information Follow-up/Referrals: Esteban Ley MD [Physician, [employer]] Discharge Medications: No Action Humulin 70/30 U-100 Insulin 100 unit/mL (70-30) suspension 15 unit subcut BID Patient Comments: Pt takes at 0400 and 1600 PNV no.95-ferrous fumarate-FA [] 28 mg iron- 800 mcg tablet 1 tablet PO DAILY Date of admission: 02/27/25 14:41 Primary Care Provider: IssacBasim Admitting Provider: Esteban Ley Attending physician on admission: Esteban Ley Condition: Stable
[2025-02-28] MEDS: OXYTOCIN 30 UNITS/NS 500 ML 30 UNITS/500 ML BAG IV CONT (08:43)
[2025-02-28] MEDS: INSULIN HUMAN REGULAR (*BKC) 100 UNITS/ML SUB-Q (11:33)
[2025-02-28] MEDS: IBUPROFEN 600 MG TABLET PO ×2 (11:39→17:13)
[2025-02-28] MEDS: ACETAMINOPHEN 325 MG TABLET 650 MG PO (12:57)
[2025-02-28] MEDS: LABETALOL HCL 100 MG TABLET 200 MG PO ×2 (13:47→23:14)
[2025-02-28] MEDS: oxyCODONE HCL (*CRX) 5 MG TAB IR PO (13:48)
--- NOTE | 2025-02-28 14:14 | PC.NURSE ---
1232. Patient transferred to post room #286 via wheelchar, infant in crib at bedside. Support person present. Oriented to unit, room, information board, rooming in, admission packet and security measures. Patient verbalizes understanding.
--- NOTE | 2025-02-28 15:00 | PC.NURSE ---
Primary RN, also CLC, A breast pump provided due to mother's request. Instructions given on cleaning, care, usage, that there should be no pain, pumping schedule for milk production, collection, and storage of human milk. Patient was assessed for correct placement, flange size, to pump for comfort and nipple stretching/stimulation for adequate milk production every 3 hours (8 times in 24 hours) 1-2 times at night. Parents are encouraged to record the pumping schedule on the feeding sheet.?Mother voiced understanding of the education shared along with mom/baby guide and the pump measurement, flange fit handout for additional resource information. Reported to the Primary RN.
[2025-02-28] MEDS: WITCH HAZEL 40 PADS 1 PAD TOPICAL (17:13)
[2025-02-28] MEDS: LANOLIN (LANSINOH) 7.5 GM CREAM 1 APPLIC TOPICAL (17:13)
[2025-02-28] MEDS: DOCUSATE SODIUM 100 MG CAPSULE PO (17:13)
[2025-02-28] MEDS: BENZOCAINE 20% AER SPR (*SP) 56 GM CAN 1 SPRAY TOPICAL (17:23)
[2025-02-28] MEDS: INSULIN HUMAN REGULAR (*BKC) 100 UNITS/ML 10 UNITS SUB-Q (20:15)
[2025-03-01] VITALS (7 sets, daily range): BP systolic 119–151; BP diastolic 66–89; PULSE 82–104; RESP 16–18; TEMP 36.6–36.9; O2SAT 97–100
[2025-03-01 04:47] LABS: Hematocrit 30.6 % (37.0-47.0); Hemoglobin 10.2 g/dL (12.0-15.0)
--- NOTE | 2025-03-01 06:36 | P.PNOB_ITS ---
OB - PN: Subj Subjective Date/time seen: 03/01/25 06:36 Interval history: sugars better on insulin Patient comments: no complaints, pain well controlled and tolerating diet OB - PN: Obj Data Labs 03/01/25 04:06 02/27/25 14:58 Labs: Laboratory Results - last 24 hr 02/28/25 02/28/25 02/28/25 08:36 11:24 13:55 Hgb Hct POC Capillary Glucose 106 H 214 H 146 H 02/28/25 03/01/25 03/01/25 19:39 04:06 06:25 Hgb 10.2 L Hct 30.6 L POC Capillary Glucose 247 H 131 H OB - PN A/P Assessment and Plan (1) Term : Code(s): Z34.90 - Encounter for supervision of normal , unspecified, unspecified trimester Status: Acute (2) Diabetes: Code(s): E11.9 - Type 2 diabetes mellitus without complications Status: Acute Plan control diabetes Time Spent With Patient Time: Total time spent is greater than 50% in coordination of care (as documented) at patient's floor/unit and/or counseling patient: Review of Systems 2 Review of Systems: CONSTITUTIONAL: Denies fever, chills, or sweats. EYES: Denies visual changes, redness, or discharge. ENT: Denies otalgia and sore throat CARDIOVASCULAR: Denies chest pain, palpitations, or edema. RESPIRATORY: Denies cough or dyspnea. GASTROINTESTINAL: Denies abdominal pain, nausea, vomiting, or diarrhea. GENITOURINARY: Denies dysuria or hematuria. SKIN: Reports abscess to right breast. MUSCULOSKELETAL: Denies back pain, joint pain, or myalgia. NEUROLOGIC: Denies headache, numbness, or weakness. Pertinent positives per HPI. Exam 2 Const: General: cooperative, healthy appearing and comfortable Nutritional Appearance: overweight Orientation/consciousness: oriented to person, oriented to place and oriented to time Resp: Effort & Inspection: normal respiratory effort Cardio: Rate: regular rate Rhythm: regular rhythm Heart sounds: S1 normal heart sound present and S2 normal heart sound present GI: Inspection: normal to inspection (Gravid soft uterus) : External Female Exam: normal external appearance Speculum Exam - Vagina: normal appearance of the vagina Speculum Exam - Cervix: normal appearance of the cervix (Cervix 3 to 4/70 5/-2. Few variable seen. Will attempt a round)
--- NOTE | 2025-03-01 06:47 | PC.NURSE ---
Discussed blood sugars with Dr. Nav Charles, orders received to stop all blood sugars at this time. Pt will manage blood sugars and insulin on her own.
[2025-03-01] MEDS: IBUPROFEN 600 MG TABLET PO ×2 (07:43→19:43)
[2025-03-01] MEDS: LABETALOL HCL 100 MG TABLET 200 MG PO ×2 (09:18→20:50)
[2025-03-01] MEDS: MULTIVIT/MIN/PREN/FOL AC/IRON TABLET 1 TAB PO (09:18)
--- NOTE | 2025-03-01 13:36 | PC.NURSE ---
1047 CLC RN to mother's room to check on how mother is pumping, she is currently asleep, advised FOB to call when she woke up. Reported to Primary RN. 1225 Mother called out, CLC RN to room, per mother she is pumping with every feeding that her is having but she is only getting drops of colostrum. Reviewed that there should be no pain, pumping schedule for milk production, collection, and storage of human milk. Mother was advised to pump for comfort and nipple stretching/stimulation for adequate milk production every 3 hours (8 times in 24 hours) 1-2 times at night. Parents are encouraged to record the pumping schedule on the feeding sheet.?Mother voiced understanding of the education shared along with mom/baby guide and the pump measurement, flange fit handout for additional resource information. Reported to the Primary RN.
--- NOTE | 2025-03-01 14:37 | WPDANLDPN2 ---
Anes-Prog Note L&D Date/Time: 03/01/25 14:37 Comfortable throughout: labor and delivery Neuraxial method: epidural Epidural/Spinal procedure site: clean & non-tender Neuro status: Neuro function grossly intact. Cardiovascular status: normal Respiratory status: normal Airway patency: baseline Mental status: baseline Post-Op hydration status: normal Vital Signs: Last Vital Signs Temp 36.9 C 03/01/25 12:10 Pulse 94 03/01/25 12:10 Resp 18 03/01/25 12:10 BP 146/87 H 03/01/25 12:10 Pulse Ox 99 03/01/25 12:10 O2 Del Method Room Air 03/01/25 07:30 Pain score (VAS): 1 I/O: Intake & Output 02/28/25 03/01/25 03/01/25 23:59 07:59 15:59 Intake Total 500 1000 440 Output Total 2700 800 Balance 500 -1700 -360 Post-procedural complaints: none Patient feedback: Patient satisfied with anesthetic care.
[2025-03-02 03:55] VITALS: BP 131/71; PULSE 87; RESP 16
--- NOTE | 2025-03-02 05:11 | P.PNOB_ITS ---
OB - PN: Subj Subjective Date/time seen: 03/02/25 05:11 Interval history: Patient gave herself her insulin but did not check any accuchecks. No preeclampsia symptoms. Patient comments: no complaints and pain well controlled baby status: doing well OB - PN: Obj Data Labs 03/01/25 04:06 02/27/25 14:58 Labs: Laboratory Results - last 24 hr 03/01/25 06:25 POC Capillary Glucose 131 H OB - PN A/P Assessment and Plan (1) Diabetes: Code(s): E11.9 - Type 2 diabetes mellitus without complications Status: Acute Assessment and Plan: Patient treated with insulin BID during for GDMA2 but sugars remained elevated so patient was told to continue her prior insulin. Discussed with patient that insulin requirements typically decreased with type II DM and to check accuchecks FBS and pp. Patient to call if low or high to adjust insulin.Patient has supplies (2) Preeclampsia: Code(s): O14.90 - Unspecified pre-eclampsia, unspecified trimester Status: Acute Assessment and Plan: BP's elevated pp. Labs ok and no symptoms. Given Labetalol 200 mg BID. Will dc home on same and to check BP at home (thinks she can borrow a BP cuff). Patient to call if BP's >150/90 Plan day: 2 Plan: routine care, discharge home and other (call office for BP check next week) Time Spent With Patient Time: Total time spent is greater than 50% in coordination of care (as documented) at patient's floor/unit and/or counseling patient: Time with patient: 15 - 25 minutes Exam 2 : Bimanual exam- vagina & uterus: other (Uterus firm, nt @U)
--- NOTE | 2025-03-02 05:16 | PM.OBDSVD ---
DS: Admitting Diagnosis Discharge Date 03/02/25 Admitting Diagnosis IUP 39 wks for MIL GDMA2 DS: Discharge Diagnosis Discharge Diagnosis (1) Preeclampsia: Code(s): O14.90 - Unspecified pre-eclampsia, unspecified trimester Status: Acute (2) Diabetes: Code(s): E11.9 - Type 2 diabetes mellitus without complications Status: Acute (3) (normal spontaneous vaginal delivery): Code(s): O80 - Encounter for full-term uncomplicated delivery Status: Acute OB - DS: Summary Hospital Course Hospital Course: Patient admitted for [facility] at 39 wks for GDMA2. without complications. PP had elevated blood sugars and was told to continue her insulin and accuchecks and likely has type II DM. Also, had elevated BP and was started on Labetalol 200 mg BID with improvement of BP. No other symptoms of preeclampsia. Pain has been well controlled. Patient is breast feeding and supplementing until milk comes in. OB Procedures : Ultrasound and Other (GDMA2 management) OB Procedures Intrapartum: Spontaneous Vag Delivery OB Procedures: : None Peripartum Data Infant Delivery Method: Natural Vaginal Laceration Description: Perineal - 1st Degree Episiotomy description: None Procedures: Procedures Operation Date: 02/28/25 12:00 <No data on this case meets the specified criteria> complications: other ( preeclampsia) Status at Discharge Functional status at discharge: independent ambulation Overall status at discharge: patient is progressing back to baseline Time Spent with Patient Time attestation: Total time spent providing and/or coordinating discharge services: DS: Data Data Completed and Pending Labs on day of discharge: Labs from last 24 hours 03/01/25 06:25 POC Capillary Glucose 131 H Discharge Plan Discharge Attending physician on discharge: Esteban Ley Discharging Clinician: Giovana Gonzalez Patient Disposition: Home Activity: may shower, no straining and pelvic rest Diet: diabetic Wound Care Instructions: follow printed instructions Patient Instructions: Antibiotic Form Patient Language: Estonian Stand Alone Forms: General Discharge Information Follow-up/Referrals: Esteban Ley MD [Physician, FOOD COOKING MACHINE OPERATOR] Discharge Medications: New labetalol 200 mg tablet 200 mg PO Q12H Qty: 60 0RF Continued Humulin 70/30 U-100 Insulin 100 unit/mL (70-30) suspension 15 unit subcut BID Patient Comments: Pt takes at 0400 and 1600 PNV no.95-ferrous fumarate-FA [] 28 mg iron- 800 mcg tablet 1 tablet PO DAILY Date of admission: 02/27/25 14:41 Primary Care Provider: Issac,Basim Admitting Provider: Esteban Ley Attending physician on admission: Esteban Ley Condition: Stable
--- NOTE | 2025-03-02 06:09 | P.PNOB_ITS ---
OB - PN: Subj Subjective Date/time seen: 03/02/25 06:09 Interval history: Patient gave herself her insulin but did not check any accuchecks. No preeclampsia symptoms. Patient comments: no complaints, pain well controlled and tolerating diet baby status: doing well OB - PN: Obj Data Labs 03/01/25 04:06 02/27/25 14:58 Labs: Laboratory Results - last 24 hr 03/01/25 06:25 POC Capillary Glucose 131 H OB - PN A/P Assessment and Plan (1) Term : Code(s): Z34.90 - Encounter for supervision of normal , unspecified, unspecified trimester Status: Acute (2) Diabetes: Code(s): E11.9 - Type 2 diabetes mellitus without complications Status: Acute (3) (normal spontaneous vaginal delivery): Code(s): O80 - Encounter for full-term uncomplicated delivery Status: Acute Plan home Time Spent With Patient Time: Total time spent is greater than 50% in coordination of care (as documented) at patient's floor/unit and/or counseling patient: Review of Systems 2 Review of Systems: CONSTITUTIONAL: Denies fever, chills, or sweats. EYES: Denies visual changes, redness, or discharge. ENT: Denies otalgia and sore throat CARDIOVASCULAR: Denies chest pain, palpitations, or edema. RESPIRATORY: Denies cough or dyspnea. GASTROINTESTINAL: Denies abdominal pain, nausea, vomiting, or diarrhea. GENITOURINARY: Denies dysuria or hematuria. SKIN: Reports abscess to right breast. MUSCULOSKELETAL: Denies back pain, joint pain, or myalgia. NEUROLOGIC: Denies headache, numbness, or weakness. Pertinent positives per HPI. Exam 2 : Bimanual exam- vagina & uterus: other (Uterus firm, nt @U)
[2025-03-02 07:25] VITALS: BP 143/92; PULSE 80; RESP 16; TEMP 36.5; O2SAT 100
[2025-03-02 10:25] VITALS: PULSE 80
[2025-03-02] MEDS: MULTIVIT/MIN/PREN/FOL AC/IRON TABLET 1 TAB PO (10:25)
[2025-03-02] MEDS: LABETALOL HCL 100 MG TABLET 200 MG PO (10:25)
--- NOTE | 2025-03-02 11:31 | PCCCNOTE ---
DCFS report completed via online. Online Intake ID listed as [id number].?
--- NOTE | 2025-03-02 11:53 | PC.NURSE ---
Pt's 12 year old daughter here to visit mother and baby (sibling).
[2025-03-02 12:36] VITALS: BP 148/88; PULSE 86; RESP 16; TEMP 36.7; O2SAT 98
--- NOTE | 2025-03-02 13:40 | PC.NURSE ---
Consulted with mother concerning needs and she shared her ability to independently use the breast pump without pain. Mother is feeding appropriately for growth of and understands stimulating to eat if needed. has had appropriate feedings in the last 24 hours meets the outcomes for weight, output, blood sugar and jaundice at this time. Reinforced understanding of milk production, transition of milk, signs of adequate intake, transition of stool, prevention/relief of engorgement, plugged ducts, mastitis, responsive feeding watching for feeding cues, the different methods of stimulating infant to feed 2-3 hours after the start of the last feeding, community /pumping resources, and when to call a provider using the resource of the feeding sheet along with the mom and baby guide. Mother voiced understanding of the information shared, is confident to continue effectively feed her infant at home, when to call for assistance, denies any additional assistance or education at this time. Reported to the Primary RN.
--- NOTE | 2025-03-02 14:46 | PC.NURSE ---
Patient viewed the discharge video Mother & Baby Care, The First Two Weeks. Patient was given the opportunity and encouraged to ask questions. Patient verbalized understanding of information shared and has been given the mother/baby guide for home reference.
[2025-03-02] MEDS: IBUPROFEN 600 MG TABLET PO (14:56)
--- NOTE | 2025-03-02 15:58 | PC.NURSE ---
DCFS Jose Patel here to see patient. ID copied and in chart.
--- NOTE | 2025-03-02 16:41 | PCCCNOTE ---
offal worker met with mother and baby at bedside. In the room was also the father of the listed as Frantz Fernandez. Mother reports that her and the baby?s father is not . It is reported they both live together and have everything for the baby at discharge. Mother reports a baby bed, diapers, car seat, formula, and she plans to breastfeed as well. Mother reports having three other children. She became a little defensive in answering questions about having custody or not. She reports two of children are removed by DCFS due to domestic violence/drug history. She reports the children being 17 & 6 that were removed and adopted by outsiders not family. She reports still having custody of her 12-year-old (Deja Melgar). 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 offal worker educated mother on applying for WIC and other resources for Medicaid in regards to the baby. Mother and Father both reports working full-time. Mother of baby reports staying home for awhile but once she goes to work, her boyfriend?s parents will watch baby. Mother reports living in a two-bed house and reports the baby will share a room with her and the father of the baby. Contact Center Consultant spoke with nurse of patient and asked about a urine screen in which was performed on first floor and was negative. Contact Center Consultant completed a referral to the hotline to ensure the safety of the baby. offal worker spoke with Jose through [employer] and he reports coming to the hospital to speak with family and to complete a home visit as well. offal worker provided contact information. Home visit is pending to determine baby discharge at this time.
--- NOTE | 2025-03-02 17:54 | PC.NURSE ---
DCFS completed home visit safety check. Home noted to be clean and safe. Crib and supplies available. MD aware that baby cleared to go home with parents.
[2025-03-04 13:52] VITALS: BP 156/86; PULSE 78; RESP 18; TEMP 36.8; O2SAT 99
== END 2025-03-02 18:50 | disposition home or self-care (01) | DRG 807 ==
LOC: ANHOB2 03-07 09:22 → ANHLDR 03-07 09:22
PROVIDERS: Admitting Provider Obstetrics & Gynecology; PCP Family Medicine; Visit Provider Obstetrics & Gynecology Gynecology
DX: O24.424 Gestational diabetes mellitus in childbirth, insulin controlled (principal); Z37.0 Single live birth; Z3A.39 39 weeks gestation of pregnancy; O69.1XX0 Labor and delivery complicated by cord around neck, with compression, not applicable or unspecified; O70.0 First degree perineal laceration during delivery; O14.95 Unspecified pre-eclampsia, complicating the puerperium
CPT/HCPCS: 36415; 80053; 80307; 82948; 84550; 85014; 85018; 85025; 86593; 86850; 86900; 86901; A9270; J1815; J2405; J2590; J2795; J7120